=== PATIENT | male | born 1930 | race Caucasian/White ===

== ENCOUNTER 2019-10-06 16:42 | Observation (INO) | payer OTHER ==
--- OUTSIDE RECORDS SUMMARY | 2019-10-06 16:44 | XMS REPORT | Clinical Summary ---
:1930 Author Organization [facility] Address [address] [place] [address] Care Team Providers Name Role Phone MD Rickey Primary Care Provider Allergies No Known Allergies Medications Medication Sig Dispensed Refills Start Date End Date Status carvedilol (COREG) Take 6.25 mg 0 Active 6.25 MG tablet by mouth 2 (two) times a day with meals. allopurinol Take 100 mg 0 Active (ZYLOPRIM) 100 MG by mouth tablet daily. losartan (COZAAR) Take 100 mg 0 Active 100 MG tablet by mouth daily. pravastatin Take 40 mg 0 Active (PRAVACHOL) 40 MG by mouth tablet daily. mirabegron Take 50 mg 0 Active (MYRBETIQ) 50 mg by mouth tablet extended daily. release 24 hr therapeutic Take 1 0 Active multivitamin tablet by (THERAGRAN) tablet mouth daily. aspirin (ECOTRIN) Take 81 mg 0 A ctive 81 MG enteric by mouth coated tablet daily. memantine Take 10 mg 0 Active (NAMENDA) 10 MG by mouth 2 tablet (two) times a day. celecoxib TAKE ONE 30 capsule 0 03/02/2019 Active (CeleBREX) 200 MG CAPSULE BY capsuleIndications MOUTH DAILY : Acute pain of right shoulder, Traumatic incomplete tear of right rotator cuff, subsequent encounter celecoxib Take 1 30 capsule 0 02/03/2019 Disconti nued (CeleBREX) 200 MG capsule (200 9 (Reorder) capsuleIndications mg total) by : Acute pain of mouth daily right shoulder, for 30 days. Traumatic incomplete tear of right rotator cuff, subsequent encounter traMADol (ULTRAM) Acute Pain. 60 tablet 0 02/03/2019 10/31/201 50 mg One tablet 9 tabletIndications: by mouth acute pain every 6-8 hours prn pain HYDROcodone-acetam acute pain. 50 tablet 0 04/28/2019 05/07/19 2 inophen (NORCO) 1 tablets by 0 7.5-325 mg per mouth every tabletIndications: 6-8 hours as acute pain needed for pain Active Problems No known active problems Encounters Date Type Specialty Care Team Description 04/28/2019 Telephone Orthopedic Surgery Lavelle Braswell Acut e pain of right shoulder (Primary Dx); Traumatic incom plete tear of right rotator cuff, subsequent encounter 03/01/2019 Refill Orthopedic Surgery Lavelle Braswell Acut e pain of right shoulder; Traumatic incom plete tear of right rotator cuff, subsequent encounter 02/03/2019 Office Visit Orthopedic Surgery Lavelle Braswell Acut e pain of right shoulder (Primary Dx); Traumatic incom plete tear of right rotator cuff, subsequent encounter 10/29/2018 Office Visit Orthopedic Surgery Lavelle Braswell Acut e pain of right MD shoulder (Prima ry Dx) after 10/05/2018 Family History Medical History Relation Name Comments Cancer Father No Known Problems Mother Relation Name Status Comments Father Mother Social History Tobacco Use Types Packs/Day Years Used Date Never Smoker Smokeless Tobacco: Never Used Alcohol Use Drinks/Week oz/Week Comments No Alcohol Habits Answer Date Recorded How often do you have a drink containing alcohol? Never 06/08/2018 How many drinks containing alcohol do you have on a typical Not asked day when you are drinking? How often do you have six or more drinks on one occasion? No t asked Sex Assigned at Date Recorded Not on file Job Start Date Occupation Industry Not on file Not on file Not on file Travel History Travel Start Travel End No recent travel history available. Last Filed Vital Signs Vital Sign Reading Time Taken Comments Blood Pressure - - Pulse - - Temperature - - Respiratory Rate - - Oxygen Saturation - - Inhaled Oxygen Concentration - - Weight 82.6 kg (182 lb) 02/03/2019 9:59 AM CDT Height 177.8 cm (5' 10") 02/03/2019 9:59 AM CDT Body Mass Index 26.11 02/03/2019 9:59 AM CDT Plan of Treatment Health Maintenance Due Date Last Done Comments SHINGLES VACCINES (#1) 1980 65+ PNEUMOCOCCAL VACCINE (1 of 2 - PCV13) 08/04/1995 INFLUENZA VACCINE 11/19/2019 Procedures Procedure Name Priority Date/Time Associated Comments Diagnosis AR ARTHROCENTESIS Routine 02/03/2019 9:50 Acute pain of Resul ts for this ASPIR&/INJ MAJOR AM CDT right shoulder procedure are in JT/BURSA W/O US Traumatic the results incomplete tear of section. right rotator cuff, subsequent encounter XR SHOULDER 2+ VW RIGHT Routine 10/29/2018 10:19 Acute pain of Results for this AM CDT right shoulder procedure are in the results section. AR ARTHROCENTESIS Routine 10/29/2018 10:00 Acute pain of Resul ts for this ASPIR&/INJ MAJOR AM CDT right shoulder procedure are in JT/BURSA W/O US the results section. after 10/05/2018 Results Large Joint Arthrocentesis: shoulder, R subacromial bursa (02/03/2019 9:50 AM CDT) Narrative Performed At Michelle Negrete NP 2018 10:40 AM Large Joint Arthrocentesis: shoulder, R subacromial bursa Consent given by: patient Site marked: site marked Timeout: Immediately prior to procedure a time out was called to verify the correct patient, procedure, equipmen t, technical support technician and site/side marked as required Supporting Documentation Indications: pain Procedure Details Preparation: Patient was prepped and darren ped in the usual sterile fashion Ultrasound guided: no Location: shoulder - R subacromial bursa Right side: Needle size: 22 G Approach: posterior Right shoulder medications administered: 80 mg methylP REDNISolone acetate 40 mg/mL; 2 mL bupivacaine 0.5 % (5 mg/mL); 2 mL lidoc aditya 10 mg/mL (1 %) Patient tolerance: patient tolerated the procedure wel l with no immediate complications XR Shoulder 2+ Vw Right (10/29/2018 10:19 AM CDT) Specimen Narrative Performed At This result has an attachment that is no t available. 3 views of the right shoulder reveal no acute fracture or dislocation. A [facility] large subacromial spur is noted with associated narrow ing of the AC joint. Performing Organization Address City/State/Zipcode Phone Number [facility] [address] [place] [address] Large Joint Arthrocentesis: shoulder, R subacromial bursa (10/29/2018 10:00 AM CDT) Narrative Performed At Michelle Negrete, JENNIFER 019 10:53 AM Large Joint Arthrocentesis: shoulder, R subacromial bursa Consent given by: patient Site marked: site marked Timeout: Immediately prior to procedure a time out was called to verify the correct patient, procedure, equipmen t, technical support technician and site/side marked as required Supporting Documentation Indications: pain Procedure Details Preparation: Patient was prepped and darren ped in the usual sterile fashion Ultrasound guided: no Location: shoulder - R subacromial bursa Right side: Needle size: 22 G Approach: posterior Right shoulder medications administered: 80 mg methylP REDNISolone acetate 40 mg/mL; 2 mL bupivacaine 0.5 % (5 mg/mL); 2 mL lidoc aditya 10 mg/mL (1 %) Patient tolerance: patient tolerated the procedure wel l with no immediate complications after 10/05/2018 Insurance Payer Benefit Plan / Subscriber ID Effective Dates Phone Addre ss Type Group HUMANA MEDICARE HUMANA MEDICARE xxxxxxxxx 2018-Present PPO PPO/PFFS/ERS [facility] ([place]) [place] [address] Advance Directives For more information, please contact: [phone] Type Date Recorded 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
[2019-10-06 16:59] VITALS: BMI 25.9
[2019-10-06] MEDS ORDERED: HYDROMORPHONE HCL 1 MG/ML INJ IV PRN (17:11)
[2019-10-06] MEDS: ENOXAPARIN 40 MG/0.4 ML SQ SCH (17:43)
[2019-10-06] MEDS ORDERED: ONDANSETRON 4 MG/2 ML VIAL IV PRN (18:00)
[2019-10-06] MEDS ORDERED: LOPERAMIDE HCL 2 MG CAPSULE PO PRN (18:00)
[2019-10-06] MEDS ORDERED: DIPHENHYDRAMINE 25 MG TAB/CAP PO PRN (18:00)
[2019-10-06] MEDS ORDERED: ONDANSETRON 4 MG (ODT) TAB PO PRN (18:00)
[2019-10-06] MEDS ORDERED: NACHLORIDE 0.45% 1,000 ML IV SCH (18:00)
[2019-10-06] MEDS ORDERED: PNEUMOCOCCAL VACCINE 0.5 ML IMVAC ONE (18:00)
[2019-10-06] MEDS ORDERED: ACETAMINOPHEN 325 MG TABLET PO PRN (18:00)
[2019-10-06] MEDS ORDERED: POLYETHYL GLY 3350 17 GM/DOSE PO PRN (18:00)
[2019-10-06 18:55] LABS: Absolute Lymphocytes (CBC) 1.7 K/uL (0.7-4.9); Basophils % 0.6 % (0-1.3); Hematocrit 44.7 % (39.6-49.0); Lymphocytes % 21.2 % (15.3-44.8); MPV 11.1 fL (7.6-11.3); RBC Red Blood Cell Count 4.82 M/uL (4.33-5.43)
[2019-10-06 18:59] LABS: Protime INR 0.97
[2019-10-06 19:27] LABS: Albumin 3.6 g/dL (3.4-5.0); Bilirubin Direct 0.1 mg/dL (0-0.2); Bilirubin Total 0.6 mg/dL (0.2-1.0); Magnesium 2.1 mg/dL (1.8-2.4); Phosphorus 3.2 mg/dL (2.5-4.9); Potassium 3.9 mmol/L (3.5-5.1); Protein, Total 7.5 g/dL (6.4-8.2); Thyroid Stimulating Hormone 1.62 uIU/mL (0.360-3.740)
[2019-10-06] MEDS: NACHLORIDE 0.45% 1,000 ML IV SCH (21:06)
[2019-10-07 06:12] LABS: Absolute Lymphocytes (CBC) 1.6 K/uL (0.7-4.9); Basophils % 0.6 % (0-1.3); Hematocrit 44.4 % (39.6-49.0); Lymphocytes % 22.5 % (15.3-44.8); MPV 10.7 fL (7.6-11.3); RBC Red Blood Cell Count 4.86 M/uL (4.33-5.43)
--- NOTE | 2019-10-07 07:24 | RAD REPORT ---
EXAM DESCRIPTION: RAD - Chest Pa And Lat (2 Views) - 10/06/2019 9:35 pm CLINICAL HISTORY: abdominal pain COMPARISON: Portable August 2010 TECHNIQUE: Frontal and lateral views of the chest were obtained. FINDINGS: The lungs are normal volume. Diaphragm is flattened. No focal mass or consolidation. No fa ilure or volume overload. Granulomatous calcifications are present at the luis. Mild for age scarring changes are seen in the lung parenchyma. Heart size is normal and central vasculature is within no rmal limits. No pleural effusion or pneumothorax seen. No acute bony finding noted. No aortic abno rmality. No free air under the diaphragm. IMPRESSION: No acute cardiopulmonary finding seen. Patient may have minimal COPD.
--- NOTE | 2019-10-07 07:39 | RAD REPORT ---
EXAM DESCRIPTION: CT - Abdomen Pelvis W Contrast - 10/06/2019 9:15 pm CLINICAL HISTORY: abdominal pain, right side, prior prostatectomy COMPARISON: No comparisons TECHNIQUE: Biphasic, helical CT imaging of the abdomen and pelvis was performed following 100 ml non -ionic IV contrast. Oral contrast was given. All CT scans are performed using dose optimization technique as appropriate and may include automated exposure control or mA/KV adjustment according to patient size. FINDINGS: No suspicious findings in the lung bases. Liver is normal size. Attenuation is borderline to mildly fatty infiltrated. No focal liver lesions. No portal vein abnormality identified. No pancreatic abnormality seen. Granulomatous calcifications a re present in an otherwise normal spleen. Gallbladder and biliary tree are also without suspicious fi nding. Renal function is symmetric. No solid mass of either kidney identifiable. No pyelonephritis or acute renal parenchymal process seen. The patient has numerous bilateral renal cysts measuring from a few m m to 7.4 cm. There is calcification along the medial rim of 1 of the upper pole left renal cysts. Non e of the cysts have a solid mass component or thickened septation. Patient has a 7 millimeter nonobst ructing calyx calcification on the left. Bladder is contracted limiting assessment. Bladder diverticu lum is seen. No bladder calculus. Prostatectomy surgical changes are noted. No adrenal abnormalities. No dilated bowel loops or bowel wall thickening. Moderate stool volume fills the colon. Patient has m inimal diverticulosis without diverticulitis. The appendix is normal. No active colon or GI process s een. No intraperitoneal free air, free fluid or pneumatosis. No inflammatory stranding. Patient has a small focus of air in the subcutaneous fatty tissues right lower quadrant presumably from a medicati on injection. No mass or bulky lymphadenopathy. Patient has a small fat only left inguinal hernia. N o abdominal wall hematoma or mass. Patient has postsurgical changes L4-S1. There is prominent degenerative change throughout the mid and lower lumbar spine. An acute or destructive bone process is not identifiable. Prominent SI joint deg enerative changes are present. Central canal detail is inherently limited in further obscured by lowe r lumbar metal hardware. No acute vascular finding. Mild for age atherosclerotic calcifications are present. IMPRESSION: No acute or significant findings seen to explain the patient's right-sided abdominal yue n pattern. No acute findings are seen. Patient has a borderline to mild fatty infiltration. Multiple renal cysts are present with 1 left renal cyst showing partial rim calcification. No solid m ass component. This can be monitored with follow-up in 6-12 months.
[2019-10-07 07:57] LABS: Urine Appearance CLEAR; Urine Bilirubin NEGATIVE (NEG); Urine Blood NEGATIVE (NEG); Urine Color YELLOW; Urine Glucose NEGATIVE (NEG); Urine Protein TRACE (NEG); Urine Specific Gravity 1.025 (1.005-1.030)
[2019-10-07 08:14] LABS: Urine Microscopic Reflex ORDER UMIC
[2019-10-07 08:34] LABS: Urine Bacteria NONE SEEN /HPF (NONE SEEN); Urine Culture Reflex Order NOT NEEDED; Urine RBC <5 /HPF (NONE SEEN)
[2019-10-07] MEDS ORDERED: LOSARTAN/HCTZ 50-12.5 PO SCH (09:00)
[2019-10-07] MEDS ORDERED: carvediloL 6.25 MG TAB PO SCH (09:00)
[2019-10-07] MEDS ORDERED: allopurinoL 100 MG TAB PO SCH (09:00)
[2019-10-07] MEDS: ENOXAPARIN 40 MG/0.4 ML SQ SCH (09:23)
[2019-10-07 10:47] VITALS: O2SAT 96
--- NOTE | 2019-10-07 11:13 | EKG ---
Test Date: 2019-10-06 Test Time: 22:08:36 Database Analyst: CATRACHO MEASUREMENT RESULTS: Intervals: Rate: 56 OH: 186 QRSD: 104 QT: 432 QTc: 416 [place]: P: 47 OH: 186 QRS: 48 T: 41 INTERPRETIVE STATEMENTS: Sinus bradycardia Otherwise normal ECG Compared to ECG 09/12/2010 04:36:46 No significant changes Electronically Signed On 10-07-19 11:12:57 CDT by Dante Epperson
[2019-10-07] MEDS: NACHLORIDE 0.45% 1,000 ML IV SCH (12:23)
[2019-10-07] MEDS ORDERED: dexAMETHasone 4 MG/ML VIAL IV ONE (13:02)
[2019-10-07 17:57] VITALS: BP 165/76; TEMP 97.6
--- NOTE | 2019-10-07 17:59 | P.DS ---
Admission Date: 10/06/19 Discharge Date: 10/07/19 Disposition: ROUTINE DISCHARGE Discharge Condition: FAIR Hospital Course: MR. TORRES HAD SEVERE PAIN R MID ABDOMEN. NOTHING IS FOUND ON CT SCAN. HE WILL SEE GI DOCTOR ON OUTPATIENT BASIS. HE WILL GET MRI DONE FIRST. HE MAY HAVE RADICULAR PAIN FROM [facility]. HE IS STABLE FOR DISCHARGE. WE ARE WAITING ALL DAY FOR MRI HOSPITAL DID NOT DO ON TIME. AT LAST I CHANGED MRI TO STAT SO I CAN SEND HIM HOME. Vital Signs/Physical Exam: Temp Pulse Resp BP Pulse Ox 97.6 F 60 16 165/76 H 97 10/07/19 16:00 10/07/19 16:00 10/07/19 16:00 10/07/19 16:00 10/07/19 16:00 Laboratory Data at Discharge: WBC 6.9 K/uL (4.3-10.9) 10/07/19 05:05 Hgb 14.8 g/dL (13.6-17.9) 10/07/19 05:05 Hct 44.4 % (39.6-49.0) 10/07/19 05:05 Plt Count 162 K/uL (152-406) 10/07/19 05:05 PT 11.4 SECONDS (9.5-12.5) 10/06/19 18:24 INR 0.97 10/06/19 18:24 APTT 30.7 SECONDS (24.3-36.9) 10/06/19 18:24 Sodium 143 mmol/L (136-145) 10/07/19 05:05 Potassium 4.0 mmol/L (3.5-5.1) 10/07/19 05:05 BUN 20 mg/dL (7-18) H 10/07/19 05:05 Creatinine 1.22 mg/dL (0.55-1.3) 10/07/19 05:05 Glucose 88 mg/dL (74-106) 10/07/19 05:05 Phosphorus 3.2 mg/dL (2.5-4.9) 10/06/19 18:24 Magnesium 2.1 mg/dL (1.8-2.4) 10/06/19 18:24 Total Bilirubin 0.6 mg/dL (0.2-1.0) 10/06/19 18:24 AST 21 U/L (15-37) 10/06/19 18:24 ALT 22 U/L (12-78) 10/06/19 18:24 Alkaline Phosphatase 85 U/L (45-117) 10/06/19 18:24 Home Medications: Allopurinol 1 tab PO DAILY 10/06/19 Colchicine 1 tab PO BID 10/06/19 Losartan/Hydrochlorothiazide [Losartan-Hctz 50-12.5 mg Tab] 1 tab PO DAILY 10/06/19 carvediloL [Carvedilol] 1 tab PO DAILY 10/06/19 Gabapentin [Neurontin*] 100 mg PO TID #90 cap 10/07/19 New Medications: Gabapentin [Neurontin*] 100 mg PO TID #90 cap
--- NOTE | 2019-10-07 19:10 | RAD REPORT ---
EXAM DESCRIPTION: MRI - Lumbar Spine Wo Con- 10/07/2019 6:11 pm CLINICAL HISTORY: back pain Back pain, radiculopathy COMPARISON: None FINDINGS: MRI lumbar spine and MRI sacrum/coccyx was performed Postsurgical hardware is in place lower lumbar spine spanning L4-S1. 8 mm degenerative anterolisthesi s is present of L4 on 5. Mild posterior disc bulges are present throughout the lumbar levels with sma ll endplate osteophytes, most significant at L3-4 where mild central canal narrowing is present. Mild edema is present along the inferior endplate of L2 with a slight central compression deformity evide nt. MRI sacral/coccygeal demonstrates diminished T1 signal and elevated T2 signal in the right inferior s acrum suspicious for insufficiency fracture. Symmetric sacroiliac joints noted. IMPRESSION: Insufficiency fracture is suspected involving the inferior right sacrum. Mild acute or subacute central osteoporotic compression fracture involving inferior L2 suspected. Lower lumbar degenerative changes are present with 8 mm anterolisthesis of L4 on 5 with hardware in p lace.
--- NOTE | 2019-10-10 09:10 | RAD REPORT ---
EXAM DESCRIPTION: MRI - Sacrum/Coccyx Wo Cont - 10/07/2019 6:15 pm CLINICAL HISTORY: Back pain Back pain, radiculopathy COMPARISON: None FINDINGS: MRI lumbar spine and MRI sacrum/coccyx was performed Postsurgical hardware is in place lower lumbar spine spanning L4-S1. 8 mm degenerative anterolisthesi s is present of L4 on 5. Mild posterior disc bulges are present throughout the lumbar levels with sma ll endplate osteophytes, most significant at L3-4 where mild central canal narrowing is present. Mild edema is present along the inferior endplate of L2 with a slight central compression deformity evide nt. MRI sacral/coccygeal demonstrates diminished T1 signal and elevated T2 signal in the right inferior s acrum suspicious for insufficiency fracture. Symmetric sacroiliac joints noted. IMPRESSION: Insufficiency fracture is suspected involving the inferior right sacrum. Mild acute or subacute central osteoporotic compression fracture involving inferior L2 suspected. Lower lumbar degenerative changes are present with 8 mm anterolisthesis of L4 on 5 with hardware in p lace.
[2019-10-12 13:58] LABS: Vitamin D 1,25-Dihydroxy Total 38 pg/mL (18-72); Vitamin D,1,25-OH2, D2 <8 pg/mL
== END 2019-10-07 20:28 | disposition home or self-care (01) ==
LOC: 2ND 16:42
PROVIDERS: ADMIT Internal Medicine; ATTEND Internal Medicine
DX: R10.9 Unspecified abdominal pain (principal); M19.90 Unspecified osteoarthritis, unspecified site; N28.1 Cyst of kidney, acquired; M43.16 Spondylolisthesis, lumbar region; Z11.59 Encounter for screening for other viral diseases; R00.1 Bradycardia, unspecified; M10.9 Gout, unspecified; G47.33 Obstructive sleep apnea (adult) (pediatric); I10 Essential (primary) hypertension; M54.17 Radiculopathy, lumbosacral region; Z79.899 Other long term (current) drug therapy; Z85.46 Personal history of malignant neoplasm of prostate
CPT/HCPCS: 93005; 87040 ×2; 85025 ×2; 80048 ×2; 36415 ×2; 83735; 84100; 85610; 80076; 85730; 82652; 84443; 82607; 74177; 71046; 72148; 72195; U0002; Q9967; J1650 ×2; G0379; G0378 ×3; 81003; 81015

== ENCOUNTER 2019-11-09 07:46 | Emergency (ER) | payer OTHER ==
--- OUTSIDE RECORDS SUMMARY | 2019-11-09 07:48 | XMS REPORT | Clinical Summary ---
:1930 Author Organization [facility] Address [address] [place] [address] Care Team Providers Name Role Phone MD [...] (ULTRAM) Acute Pain. 60 tablet 0 02/03/2019 50 mg One tablet 9 tabletIndications: by [...] tear of right rotator cuff, subsequent encounter after 11/08/2018 Family History Medical History Relation Name Comments [...] Procedure Name Priority Date/Time Associated Comments Diagnosis [place] ARTHROCENTESIS Routine 02/03/2019 9:50 Acute pain of Resul ts for this ASPIR&/INJ MAJOR AM CDT right shoulder procedure are in JT/BURSA W/O US Traumatic the results incomplete tear of section. right rotator cuff, subsequent encounter after 11/08/2018 Results Large Joint Arthrocentesis: shoulder, R subacromial bursa (02/03/2019 9:50 AM CDT) Narrative Performed At Michelle Negrete NP 2018 10:40 AM Large Joint Arthrocentesis: shoulder, R subacromial bursa Consent given by: patient Site marked: site marked Timeout: Immediately prior to procedure a time out was called to verify the correct patient, procedure, equipmen t, network support technician and site/side marked as required [...] wel l with no immediate complications after 11/08/2018 Insurance Payer Benefit Plan / Subscriber ID Effective Dates Phone Addre ss Type Group HUMANA MEDICARE HUMANA MEDICARE xxxxxxxxx 2018-Present PPO PPO/PFFS/ERS [facility] ([place]) [place] [address] Advance Directives For more information, please contact: [phone] Type Date Recorded Patient Choir Director Explanati on Advance Directives, Living Will and Medical Power of Jump Roll Operator
[2019-11-09 08:16] LABS: Absolute Lymphocytes (CBC) 1.6 K/uL (0.7-4.9); Basophils % 0.7 % (0-1.3); Hematocrit 43.5 % (39.6-49.0); Lymphocytes % 17.8 % (15.3-44.8); MPV 10.1 fL (7.6-11.3); RBC Red Blood Cell Count 4.75 M/uL (4.33-5.43)
[2019-11-09] MEDS ORDERED: MEPERIDINE HCL 50 MG/ML ONE (08:24)
--- NOTE | 2019-11-09 08:28 | RAD REPORT ---
EXAM DESCRIPTION: RAD - Chest Single View - 11/09/2019 8:20 am CLINICAL HISTORY: CHEST PAIN Chest pain. COMPARISON: Chest Pa And Lat (2 Views) dated 10/06/2019; CHEST SINGLE VIEW dated 09/12/2010 FINDINGS: Portable technique limits examination quality. The lungs are underinflated but grossly clear. The heart is normal in size. No displaced fractures.To rtuous thoracic aorta. IMPRESSION: No acute intrathoracic process suspected.
[2019-11-09 08:32] LABS: ALT/SGPT 24 U/L (12-78); AST/SGOT 21 U/L (15-37); Albumin 3.5 g/dL (3.4-5.0); Alkaline Phosphatase 105 U/L (45-117); BUN Blood Urea Nitrogen 29 mg/dL (7-18); Bicarbonate 26 mmol/L (21-32); Bilirubin Direct 0.2 mg/dL (0-0.2); Bilirubin Total 0.9 mg/dL (0.2-1.0); Glucose Level 98 mg/dL (74-106); Magnesium 2.5 mg/dL (1.8-2.4); NT PRO-BNP 195 pg/mL (<450); Potassium 4.3 mmol/L (3.5-5.1); Protein, Total 7.7 g/dL (6.4-8.2); Sodium Level 139 mmol/L (136-145); Troponin (Emerg Dept Use Only) < 0.02 ng/mL (0.0-0.045)
--- NOTE | 2019-11-09 12:31 | ER ---
Nurse's Notes [facility] Name: Ashok Barr Age: 89 yrs Sex: Male : 1930 Arrival Date: 11/09/2019 Time: 07:47 Bed 14 Private MD: Jeffrey Lang V Diagnosis: Chest pain, unspecified Presentation: 11/08 07:47 Chief complaint: Patient states: "I have some chest spasms that started about 20 aa5 minutes ago". Pt c/o pain to left side of chest, denies cough, denies fever, denies SOB. 07:47 Coronavirus screen: Patient denies a cough. Patient denies shortness of breath or aa5 difficulty breathing. Patient denies measured and/or subjective temperature greater than 100.4F prior to today's visit. Patient denies travel on a cruise ship or to a country the [facility] currently lists as an affected area. Patient denies contact with known and/or suspected case of COVID-19. Proceed with normal triage. Ebola Screen: Patient negative for fever greater than or equal to 101.5 degrees Fahrenheit, and additional compatible Ebola Virus Disease symptoms. Initial Sepsis Screen: Does the patient meet any 2 criteria? No. Patient's initial sepsis screen is negative. Does the patient have a suspected source of infection? No. Patient's initial sepsis screen is negative. Risk Assessment: Do you want to hurt yourself or someone else? Patient reports no desire to harm self or others. Onset of symptoms was November 09, 2019. 07:47 Method Of Arrival: Wheelchair aa5 07:47 Acuity: SATISH 3 aa5 Historical: - Allergies: 07:47 No Known Allergies; aa5 - PMHx: 07:47 Hypertension; aa5 - Immunization history:: Adult Immunizations up to date. - Family history:: not pertinent. - Social history:: Smoking status: unknown. - Hospitalizations: : No recent hospitalization is reported. Screenin:10 Abuse screen: Denies threats or abuse. Denies injuries from another. Nutritional jr10 screening: No deficits noted. Tuberculosis screening: No symptoms or risk factors identified. Fall Risk Fall in past 12 months (25 points). IV access (20 points). Ambulatory Aid- Crutches/Cane/Walker (15 pts). Gait- Normal/Bed Rest/Wheelchair (0 pts) Mental Status- Oriented to own ability (0 pts). Assessment: 08:07 General: Appears distressed, uncomfortable, Behavior is restless. Pain: Complains of jr10 pain in anterior aspect of left upper chest and left breast. Pain: Pain does not radiate. Pain currently is 8 out of 10 on a pain scale. Quality of pain is described as sharp, Pain began 30 min ago. Is intermittent, episodic, lasting a few seconds. Alleviated by nothing. Noted to be grimacing, moaning, Also complains of no other associated symptoms. 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 Neuro: No deficits noted. Cardiovascular: Reports chest pain, Denies lightheadedness, nausea, palpitations, shortness of breath, vomiting, Edema is absent. Rhythm is regular. Respiratory: No deficits noted. Breath sounds are clear bilaterally. GI: No deficits noted. : No deficits noted. Derm: No deficits noted. Musculoskeletal: No deficits noted. 08:12 Reassessment: xray at bedside. jr10 08:26 Reassessment: Pt family contact information Deloris (): [phone]. jr10 09:39 Reassessment: Patient appears in no apparent distress at this time. Patient states jr10 feeling better. Patient states symptoms have improved. Vital Signs: 07:47 BP 152 / 72; Pulse 62; Resp 18 S; Temp 97.8(O); Pulse Ox 98% on R/A; Weight 81.65 kg aa5 (R); Height 5 ft. 10 in. (177.80 cm) (R); Pain 10/10; 08:10 BP 143 / 69; Pulse 58; Resp 20; Pulse Ox 96% ; Pain 8/10; jr10 09:00 BP 96 / 61; Pulse 56; Resp 17; Pulse Ox 99% on 2 lpm NC; jr10 09:38 Pain 0/10; jr10 10:03 BP 106 / 60; Pulse 58; Resp 18; Pulse Ox 96% on R/A; Pain 0/10; jr10 12:19 BP 121 / 72; Pulse 56; Resp 20; Pulse Ox 100% on R/A; jr10 12:30 BP 121 / 63; Pulse 61; Resp 20; Temp 98.7; Pulse Ox 100% on R/A; jr10 07:47 Body Mass Index 25.83 (81.65 kg, 177.80 cm) aa5 ED Course: 07:47 Patient arrived in ED. mr 07:47 Jeffrey Lang MD is Private Physician. mr 07:47 Arm band placed on. aa5 07:50 Romeo Pettit MD is Attending Physician. rn 07:51 EKG done, by ED staff, reviewed by Romeo Pettit MD. [facility] 07:52 Samara Mcclain, SANDER is Primary Nurse. jr10 08:01 Triage completed. aa5 08:10 Patient has correct armband on for positive identification. Placed in gown. Bed in low jr10 position. Call light in reach. Side rails up X2. environmental monitoring technician on. Pulse ox on. NIBP on. 08:11 No provider procedures requiring assistance completed. Inserted saline lock: 20 gauge jr10 in right forearm, using aseptic technique. IV is patent, is intact, Flushed. Oxygen administration via nasal cannula \\T\\ 2L/min. 08:20 XRAY Chest (1 view) In Process Unspecified. EDMS 10:04 No apparent distress. Resting quietly. jr10 12:30 Jeffrey Lang MD is Referral Physician. rn 12:56 IV discontinued, No redness/swelling at site. Pressure dressing applied. jr10 Administered Medications: 08:21 Drug: Demerol - Meperidine 12.5 mg Route: IVP; Site: right forearm; jr10 09:38 Follow up: Response: No adverse reaction; Pain is decreased jr10 Outcome: 12:30 Discharge ordered by . rn 12:56 Discharged to home ambulatory, with significant other. jr10 12:56 Condition: good 12:56 Discharge instructions given to patient, Instructed on discharge instructions, follow up and referral plans. Demonstrated understanding of instructions, follow-up care. 12:57 Patient left the ED. jr10 Signatures: Dispatcher [employer] EDWA Katherine Mcclain mr Romeo Pettit MD MD rn Calderon, Audri, RN RN 5 Kary Mejia [facility] Samara Mcclain RN RN [facility]
--- NOTE | 2019-11-09 12:31 | EDPHYS ---
Physician Documentation [facility] Name: Ashok Barr Age: 89 yrs Sex: Male : 1930 Arrival Date: 11/09/2019 Time: 07:47 Bed 14 Private MD: Jeffrey Lang V ED Physician Romeo Pettit HPI: 11/08 08:04 This 89 yrs old Male presents to ER via Wheelchair with complaints of Chest rn Pain. 08:04 The patient or guardian reports chest pain that is located primarily in the left rn lateral anterior chest. Onset: 20 minute(s) ago. The pain does not radiate. Associated signs and symptoms: The patient has no apparent associated signs or symptoms, Pertinent negatives: diaphoresis, headache, lower extremity swelling, shortness of breath, syncope, vomiting. The chest pain is described as cramping. Duration: The patient or guardian reports multiple episodes, that are intermittent. Modifying factors: The symptoms are alleviated by nothing. the symptoms are aggravated by nothing. Severity of pain: At its worst the pain was mild in the emergency department the pain is unchanged. The patient has not experienced similar symptoms in the past. Reports sudden onset of chest pain while about to drink coffee, feels like muscle cramps of chest, feels deep, not worse or better with anything, is episodic, lasts for seconds, but happening frequently, no syncope/sob/cough/fever/vomiting/diarrhea. Never had pain like this before, denies recent fall or trauma. . Historical: - Allergies: 07:47 No Known Allergies; aa5 - PMHx: 07:47 Hypertension; aa5 - Immunization history:: Adult Immunizations up to date. - Family history:: not pertinent. - Social history:: Smoking status: unknown. - Hospitalizations: : No recent hospitalization is reported. ROS: 08:04 Constitutional: Negative for fever, chills, and weight loss, Eyes: Negative for injury, rn pain, redness, and discharge, Neck: Negative for injury, pain, and swelling, Cardiovascular: Negative for palpitations, and edema, Respiratory: Negative for shortness of breath, cough, wheezing, and pleuritic chest pain, Abdomen/GI: Negative for abdominal pain, nausea, vomiting, diarrhea, and constipation, Back: Negative for injury and pain, MS/Extremity: Negative for injury and deformity, Skin: Negative for injury, rash, and discoloration, Neuro: Negative for headache, weakness, numbness, tingling, and seizure. Exam: 08:04 Constitutional: This is a well developed, well nourished patient who is awake, alert, rn episodic grimaces with pain Head/Face: Normocephalic, atraumatic. Cardiovascular: Regular rate and rhythm. No pulse deficits. Respiratory: Equal breath sounds bilaterally. No increased work of breathing, no retractions or nasal flaring. Abdomen/GI: soft, non-tender Skin: Warm, dry MS/ Extremity: Pulses equal, no cyanosis. Neurovascular intact. Full, normal range of motion. Equal circumference. Neuro: Awake and alert, GCS 15, oriented to person, place, time, and situation. Cranial nerves II-XII grossly intact. Motor strength 5/5 in all extremities. Sensory grossly intact. 08:10 ECG was reviewed by the Attending Physician. rn Vital Signs: 07:47 BP 152 / 72; Pulse 62; Resp 18 S; Temp 97.8(O); Pulse Ox 98% on R/A; Weight 81.65 kg aa5 (R); Height 5 ft. 10 in. (177.80 cm) (R); Pain 10/10; 08:10 BP 143 / 69; Pulse 58; Resp 20; Pulse Ox 96% ; Pain 8/10; jr10 09:00 BP 96 / 61; Pulse 56; Resp 17; Pulse Ox 99% on 2 lpm NC; jr10 09:38 Pain 0/10; jr10 10:03 BP 106 / 60; Pulse 58; Resp 18; Pulse Ox 96% on R/A; Pain 0/10; jr10 12:19 BP 121 / 72; Pulse 56; Resp 20; Pulse Ox 100% on R/A; jr10 12:30 BP 121 / 63; Pulse 61; Resp 20; Temp 98.7; Pulse Ox 100% on R/A; jr10 07:47 Body Mass Index 25.83 (81.65 kg, 177.80 cm) aa5 MDM: 07:50 Patient medically screened. rn 08:54 ED course: Cramping and pain resolved with 12.5 mg demerol. Feels fine. Initial labs rn and cxr/ecg unremarkable, will repeat troponin and ecg and if no change, dc home. . 12:29 Differential diagnosis: acute myocardial infarction, acute pericarditis, anxiety, chest rn wall pain, costochondritis, gastritis, gastroesophageal reflux disease (GERD), pleurisy, pneumothorax. Data reviewed: vital signs, nurses notes, lab test result(s), EKG, radiologic studies, plain films, and as a result, I will discharge patient. Counseling: I had a detailed discussion with the patient and/or guardian regarding: the historical points, exam findings, and any diagnostic results supporting the discharge/admit diagnosis, lab results, radiology results, the need for outpatient follow up, to return to the emergency department if symptoms worsen or persist or if there are any questions or concerns that arise at home. Response to treatment: the patient's symptoms have resolved after treatment, the patient's condition has returned to base line, the patient is now symptom free, and as a result, I will discharge patient. ED course: Symptom free for hours, repeat trop and ecg no change, no ischemia, will dc home. . 11/08 07:59 Order name: Basic Metabolic Panel; Complete Time: 08:35 11/08 07:59 Order name: CBC with Diff; Complete Time: 08:30 11/08 07:59 Order name: LFT's; Complete Time: 08:35 11/08 07:59 Order name: Magnesium; Complete Time: 08:35 11/08 07:59 Order name: NT PRO-BNP; Complete Time: 08:35 11/08 07:59 Order name: Troponin (emerg Dept Use Only); Complete Time: 08:35 11/08 07:59 Order name: XRAY Chest (1 view); Complete Time: 08:30 11/08 07:59 Order name: EKG; Complete Time: 08:00 11/08 07:59 Order name: Cardiac monitoring; Complete Time: 08:03 11/08 07:59 Order name: EKG - Nurse/Tech; Complete Time: 08:03 11/08 07:59 Order name: IV Saline Lock; Complete Time: 08:11/08 11:09 Order name: Troponin (emerg Dept Use Only); Complete Time: 12:29 11/08 11:09 Order name: EKG; Complete Time: 11:11/08 07:59 Order name: Labs collected and sent; Complete Time: 08:03 rn 11/08 07:59 Order name: O2 Per Protocol; Complete Time: 08:03 rn 11/08 07:59 Order name: O2 Sat Monitoring; Complete Time: 08:03 rn 11/08 11:09 Order name: EKG - Nurse/Tech; Complete Time: 12:19 rn EC:10 Rate is 62 beats/min. Rhythm is regular. QRS [place] is Normal. IN interval is normal. QRS rn interval is normal. QT interval is normal. No Q waves. T waves are Normal. No ST changes noted. Clinical impression: NSR w/ Non-specific ST/T Changes. Interpreted by me. Reviewed by me. Administered Medications: 08:21 Drug: Demerol - Meperidine 12.5 mg Route: IVP; Site: right forearm; jr10 09:38 Follow up: Response: No adverse reaction; Pain is decreased jr10 Disposition: 11/09/19 12:30 Discharged to Home. Impression: Chest pain, unspecified. - Condition is Stable. - Discharge Instructions: Nonspecific Chest Pain, Pain Without a Known Cause. - Medication Reconciliation Form, Thank You Letter, Antibiotic Education, Prescription Opioid Use form. - Follow up: Jeffrey Lang MD; When: 1 - 2 days; Reason: Recheck today's complaints, Re-evaluation by your physician. - Problem is new. - Symptoms are resolved. Signatures: Dispatcher [employer] EDMS Romeo Pettit MD MD rn Calderon, Audri, RN RN aa5 Samara Mcclain RN RN jr10 Corrections: (The following items were deleted from the chart) 12:57 12:30 11/09/2019 12:30 Discharged to Home. Impression: Chest pain, unspecified. jr10 Condition is Stable. Forms are Medication Reconciliation Form, Thank You Letter, Antibiotic Education, Prescription Opioid Use. Follow up: Jeffrey Lang; When: 1 - 2 days; Reason: Recheck today's complaints, Re-evaluation by your physician. Problem is new. Symptoms are resolved. rn
[2019-11-09 20:58] VITALS: O2SAT 100
[2019-11-09 20:59] VITALS: BP 121/63; TEMP 98.7
--- NOTE | 2019-11-11 15:29 | EKG ---
Test Date: 2019-11-09 Test Time: 12:15:56 Scientific Helper: ESPINOZA MEASUREMENT RESULTS: Intervals: Rate: 55 KS: 188 QRSD: 106 QT: 442 QTc: 422 [place]: P: -29 KS: 188 QRS: 56 T: 10 INTERPRETIVE STATEMENTS: Undetermined rhythm Otherwise normal ECG Compared to ECG 11/09/2019 07:51:21 Junctional rhythm no longer present ST (T wave) deviation no longer present Electronically Signed On 11-11-19 15:24:42 CDT by Dante Epperson
--- NOTE | 2019-11-11 15:29 | EKG ---
Test Date: 2019-11-09 Test Time: 07:51:21 Restaurant Shift Leader: EUGENIA MEASUREMENT RESULTS: Intervals: Rate: 62 PA: QRSD: 92 QT: 408 QTc: 414 [place]: P: PA: QRS: 64 T: 61 INTERPRETIVE STATEMENTS: Junctional rhythm Nonspecific ST abnormality Abnormal ECG Compared to ECG 10/06/2019 22:08:36 Junctional rhythm now present ST (T wave) deviation now present Sinus bradycardia no longer present Electronically Signed On 11-11-19 15:24:45 CDT by Dnate Epperson
== END 2019-11-09 12:57 | disposition home or self-care (01) ==
LOC: ER 07:46
DX: R07.9 Chest pain, unspecified (principal)
CPT/HCPCS: 93005 ×2; 85025; 80048; 36415; 83735; 80076; 84484 ×2; 83880; 71045; 96374; 99285; J2175

== ENCOUNTER 2020-06-16 19:19 | Inpatient (IN) | payer OTHER ==
[2020-06-16] MEDS ORDERED: MORPHINE 2 MG/ML SYR ONE ×2 (19:55→20:47)
[2020-06-16] MEDS ORDERED: MORPHINE 4 MG/ML SYR ONE (21:06)
--- NOTE | 2020-06-16 21:23 | RAD REPORT ---
EXAM DESCRIPTION: RAD - Pelvis - 06/16/2020 9:15 pm CLINICAL HISTORY: fall Trauma, fall COMPARISON: No comparisons FINDINGS: Intratrochanteric fracture of the proximal left femur is noted with mild displacement. No dislocation.
--- NOTE | 2020-06-16 21:24 | RAD REPORT ---
EXAM DESCRIPTION: RAD - Femur Left - 06/16/2020 9:16 pm CLINICAL HISTORY: fall;Pain COMPARISON: No comparisons FINDINGS: Intratrochanteric fracture is seen of the proximal left femur with mild displacement of th e fracture fragments. No dislocation evident.
--- NOTE | 2020-06-16 21:30 | EDPHYS ---
Physician Documentation [facility] Name: Ashok Barr Age: 89 yrs Sex: Male : 1930 Arrival Date: 06/16/2020 Time: 19:20 Bed X-Ray Private MD: ED Physician Nazario Arriola HPI: 06/16 19:40 This 89 yrs old Male presents to ER via EMS with complaints of Hip Pain. cp 19:40 The patient or guardian reports an injury, pain. that occurred at home, sustained from cp a fall, from a standing position, The patient is not able to ambulate. Patient is not able to bear weight. The complaints affect the left hip. Onset: The symptoms/episode began/occurred just prior to arrival. Associated signs and symptoms: Loss of consciousness: the patient experienced no loss of consciousness, Pertinent negatives: abdominal pain, chest pain, dizziness, fever, headache, shortness of breath, weakness. Severity of symptoms: in the emergency department the symptoms are unchanged, despite EMS interventions. Historical: - Allergies: 19:35 No Known Allergies; wh - PMHx: 19:35 Hypertension; wh - Immunization history:: Adult Immunizations up to date. - Social history:: Smoking status: Patient/guardian denies using. - Immunization history: Last tetanus immunization: unknown. ROS: 19:45 Constitutional: Negative for body aches, chills, fever, poor PO intake. cp 19:45 Eyes: Negative for injury, pain, redness, and discharge. cp 19:45 ENT: Negative for ear pain, sore throat, difficulty swallowing, difficulty handling secretions. 19:45 Neck: Negative for pain with movement, pain at rest, stiffness. 19:45 Cardiovascular: Negative for chest pain, edema, palpitations. 19:45 Respiratory: Negative for cough, shortness of breath, wheezing. 19:45 Abdomen/GI: Negative for abdominal pain, nausea, vomiting, and diarrhea, black/tarry stool, rectal bleeding. 19:45 Back: Negative for pain at rest, pain with movement. 19:45 MS/extremity: Positive for decreased range of motion, pain, tenderness, of the left hip, Negative for deformity, paresthesias. 19:45 Neuro: Negative for altered mental status, dizziness, headache, loss of consciousness, syncope, weakness. 19:45 All other systems are negative. Exam: 19:50 Constitutional: The patient appears in no acute distress, alert, awake, cp non-diaphoretic, non-toxic, well developed, well nourished, uncomfortable. 19:50 Head/Face: Normocephalic, atraumatic. cp 19:50 Eyes: Periorbital structures: appear normal, Conjunctiva: normal, no exudate, no injection, Lids and lashes: appear normal, bilaterally. 19:50 ENT: External ear(s): are unremarkable, Nose: is normal, Mouth: Lips: moist, Oral mucosa: moist, Posterior pharynx: Airway: no evidence of obstruction, patent. 19:50 Neck: C-spine: vertebral tenderness, is not appreciated, crepitus, is not appreciated, ROM/movement: is normal, is supple, without pain, no range of motions limitations, no nuchal rigidity. 19:50 Chest/axilla: Inspection: normal, Palpation: is normal, no crepitus, no tenderness. 19:50 Cardiovascular: Rate: normal, Rhythm: regular, Edema: is not appreciated, JVD: is not appreciated. 19:50 Respiratory: the patient does not display signs of respiratory distress, Respirations: normal, no use of accessory muscles, no retractions, labored breathing, is not present, Breath sounds: are clear throughout, no decreased breath sounds, no stridor, no wheezing. 19:50 Abdomen/GI: Inspection: abdomen appears normal, Palpation: abdomen is soft and non-tender, in all quadrants. 19:50 Back: pain, is absent, ROM is normal. 19:50 Musculoskeletal/extremity: Extremities: grossly normal except: noted in the left hip: decreased ROM, pain, tenderness, ROM: limited passive range of motion due to pain, in the left hip, Pulses: noted to be 2+ in the left dorsalis pedis artery, the left hip Severe pain noted. 19:50 Neuro: Orientation: to person, place \T\ time. Mentation: is normal, Motor: moves all fours, strength is normal. 21:40 ECG was reviewed by the Attending Physician. cp Vital Signs: 19:37 BP 146 / 75; Pulse 67; Resp 18; Temp 97; Pulse Ox 99% ; Weight 83.91 kg; Height 5 ft. wh 10 in. (177.80 cm); Pain 9/10; 20:54 BP 153 / 80; Pulse 72; Resp 18; Pulse Ox 99% on R/A; wh 22:31 BP 139 / 91; Pulse 85; Resp 18; Pulse Ox 99% on R/A; wh 23:22 BP 122 / 65; Pulse 86; Resp 18; Pulse Ox 98% on R/A; wh 19:37 Body Mass Index 26.54 (83.91 kg, 177.80 cm) [place] Coma Score: 19:39 Eye Response: spontaneous(4). Verbal Response: oriented(5). Motor Response: obeys wh commands(6). Total: 15. Trauma Score (Adult): 19:39 Eye Response: spontaneous(1); Verbal Response: oriented(1); Motor Response: obeys wh commands(2); Systolic BP: > 89 mm Hg(4); Respiratory Rate: 10 to 29 per min(4); [place] Score: 15; Trauma Score: 12 19:39 Eye Response: spontaneous(1); Verbal Response: oriented(1); Motor Response: obeys wh commands(2); Systolic BP: > 89 mm Hg(4); Respiratory Rate: 10 to 29 per min(4); [place] Score: 15; Trauma Score: 12 MDM: 19:33 Patient medically screened. cp 21:30 Data reviewed: vital signs, nurses notes, radiologic studies, plain films, and as a cp result, I will admit patient. 21:30 Test interpretation: by ED physician or midlevel provider: plain radiologic studies, cp xrays of left hip show intertrochanteric fracture. Physician consultation: Jeffrey Lang MD was called at 21:25, was contacted at 21:25, regarding admission, to the telemetry unit. patient's condition. 06/16 21:22 Order name: Basic Metabolic Panel cp 06/16 21:22 Order name: CBC with Diff; Complete Time: 22:10 cp 06/16 22:10 Interpretation: Normal except: RBC 3.91; HGB 12.4; HCT 36.4. cp 06/16 21:22 Order name: LFT's cp 06/16 21:22 Order name: Magnesium cp 06/16 21:22 Order name: NT PRO-BNP cp 06/16 21:22 Order name: PT-INR cp 06/16 19:34 Order name: XRAY Pelvis; Complete Time: 21:35 cp 06/16 21:35 Interpretation: Report reviewed. cp 06/16 21:22 Order name: Troponin (emerg Dept Use Only) cp 06/16 21:22 Order name: Ptt, Activated cp 06/16 22:28 Order name: Basic Metabolic Panel EDMS 06/16 22:29 Order name: Basic Metabolic Panel EDMS 06/16 22:29 Order name: CBC with Automated Diff EDMS 06/16 22:29 Order name: CBC with Automated Diff EDMS 06/16 23:03 Order name: SARS-COV-2 RT PCR EDMS 06/16 19:34 Order name: XRAY Femur LEFT; Complete Time: 21:35 cp 06/16 19:34 Order name: IV; Complete Time: 19:40 cp 06/16 21:16 Order name: Chest Single View XRAY; Complete Time: 21:35 mt 06/16 21:22 Order name: EKG; Complete Time: 21:22 cp 06/16 21:22 Order name: Cardiac monitoring; Complete Time: 21:42 cp 06/16 21:22 Order name: EKG - Nurse/Tech; Complete Time: 21:42 cp 06/16 21:22 Order name: Labs collected and sent; Complete Time: 21:42 cp 06/16 21:22 Order name: O2 Per Protocol; Complete Time: 21:42 cp 06/16 21:22 Order name: O2 Sat Monitoring; Complete Time: 21:42 cp 06/16 22:18 Order name: CONS Physician Consult EDTN 06/16 21:22 Order name: [place]; Complete Time: 21:42 cp EC:40 Rate is 77 beats/min. Rhythm is regular. QRS interval is prolonged at 114 msec. QT cp interval is normal. Interpreted by me. Reviewed by me. Administered Medications: 19:40 Drug: morphine 2 mg Route: IVP; Site: left forearm; mg2 20:43 Drug: morphine 2 mg {Note: RASS 0.} Route: IVP; Site: left forearm; wh 21:42 Follow up: Response: No adverse reaction; RASS: Alert and Calm (0) mg2 22:47 Follow up: Response: No adverse reaction; Pain is unchanged, physician notified; RASS: Alert and Calm (0) 20:54 Drug: morphine 4 mg {Note: RASS 0.} Route: IVP; Site: left forearm; wh 21:42 Follow up: Response: No adverse reaction; RASS: Alert and Calm (0) mg2 22:47 Follow up: Response: No adverse reaction; Pain is decreased; RASS: Alert and Calm (0) wh 21:47 Drug: Zofran (Ondansetron) 4 mg Route: IVP; Site: left forearm; wh 22:47 Follow up: Response: No adverse reaction; Nausea is decreased wh 22:33 Drug: Zofran (Ondansetron) 4 mg Route: IVP; Site: left forearm; 23:01 Follow up: Response: No adverse reaction mg2 22:35 Drug: Dilaudid 1 mg Route: IVP; Site: left forearm; 23:01 Follow up: Response: No adverse reaction mg2 23:47 Drug: Phenergan 25 mg Route: IVP; Site: left forearm; [facility] [place] 23:48 Follow up: Response: No adverse reaction mg2 Disposition: 06/17 05:04 Co-signature as Attending Physician, Nazario Arriola MD. [email or web address] Disposition: 06/16/20 21:30 Hospitalization ordered by Jeffrey Lang for Inpatient Admission. Preliminary diagnosis are Intertrochanteric fracture of femur - left, Fall on same level from slipping, tripping and stumbling. - Bed requested for Telemetry/MedSurg (Inpatient). - Status is Inpatient Admission. mg2 - Condition is Stable. - Problem is new. - Symptoms have improved. Signatures: Dispatcher [employer] EDMS Miriam Orta RN RN bb Page, Corey, PA PA Luis M Vicente RN RN [id number] Milan Hsu RN RN Delroy Staples RN RN [facility] [place] Nazario Arriola MD MD [email or web address] Corrections: (The following items were deleted from the chart) 06/16 23:17 21:30 Hospitalization Ordered by Jeffrey Lang MD for Inpatient Admission. Preliminary jb4 diagnosis is Intertrochanteric fracture of femur - left; Fall on same level from slipping, tripping and stumbling. Bed requested for Telemetry/MedSurg (Inpatient). Status is Inpatient Admission. Condition is Stable. Problem is new. Symptoms have improved. cp 23:19 23:17 06/16/2020 21:30 Hospitalization Ordered by Jeffrey Lang MD for Inpatient bb Admission. Preliminary diagnosis is Intertrochanteric fracture of femur - left; Fall on same level from slipping, tripping and stumbling. Bed requested for Telemetry/MedSurg (Inpatient). Status is Inpatient Admission. Condition is Stable. Problem is new. Symptoms have improved. jb4 23:48 23:19 06/16/2020 21:30 Hospitalization Ordered by Jeffrey Lang MD for Inpatient mg2 Admission. Preliminary diagnosis is Intertrochanteric fracture of femur - left; Fall on same level from slipping, tripping and stumbling. Bed requested for Telemetry/MedSurg (Inpatient). Status is Inpatient Admission. Condition is Stable. Problem is new. Symptoms have improved. bb
--- NOTE | 2020-06-16 21:30 | ER ---
Nurse's Notes [facility] Name: Ashok Barr Age: 89 yrs Sex: Male : 1930 Arrival Date: 06/16/2020 Time: 19:20 Bed X-Ray Private MD: Diagnosis: Intertrochanteric fracture of femur-left;Fall on same level from slipping, tripping and stumbling Presentation: 06/16 19:33 Chief complaint: EMS states: Pt was standing up when he fell and and landed on a sitting position. Pt now complaining of left hip pain. Coronavirus screen: Client denies travel out of the [place] in the last 14 days. At this time, the client does not indicate any symptoms associated with coronavirus-19. Ebola Screen: Patient negative for fever greater than or equal to 101.5 degrees Fahrenheit, and additional compatible Ebola Virus Disease symptoms Patient denies exposure to infectious person. Risk Assessment: Do you want to hurt yourself or someone else? Patient reports no desire to harm self or others. Onset of symptoms was June 16, 2020. Care prior to arrival: Medication(s) given: Fentanyl 75 mcg IV initiated. 20 GA, in the left forearm. 19:33 Method Of Arrival: EMS: [facility] 19:33 Acuity: SATISH 3 19:39 Initial Sepsis Screen: Does the patient meet any 2 criteria? No. Patient's initial sepsis screen is negative. Does the patient have a suspected source of infection? No. Patient's initial sepsis screen is negative. 19:40 Care prior to arrival: Medication(s) given: Fentanyl 75 mcg. Mechanism of Injury: Fall. Trauma event details: Injury occurred in the [facility]. Trauma Activation: Physician: ED Physician; Name: ; Notified At: 19:30; Arrived At: Physician: General Surgeon; Name: ; Notified At: 19:30; Arrived At: Physician: Radiology; Name: ; Notified At: 19:30; Arrived At: Physician: Respiratory; Name: ; Notified At: 19:30; Arrived At: Physician: Lab; Name: ; Notified At: 19:30; Arrived At: Historical: - Allergies: 19:35 No Known Allergies; wh - PMHx: 19:35 Hypertension; wh - Immunization history:: Adult Immunizations up to date. - Social history:: Smoking status: Patient/guardian denies using. - Immunization history: Last tetanus immunization: unknown. Screenin:35 Abuse screen: Denies threats or abuse. Denies injuries from another. Nutritional wh screening: No deficits noted. Tuberculosis screening: No symptoms or risk factors identified. Fall Risk Fall in past 12 months (25 points). Primary Survey: 19:39 NO uncontrolled hemorrhage observed. A: The patient is alert. Airway: patent. wh Breathing/Chest: Respiratory pattern: regular, Respiratory effort: spontaneous, unlabored. Circulation: Pulses: palpable left dorsalis pedis artery. Disability Alert. Exposure/Environment: All clothing and personal items were removed. Forensic evidence collection is not deemed to be indicated at this time. Items placed in patient belonging bag. There is no evidence of uncontrolled external bleeding. 20:53 Reassessment Airway Airway Patent Breathing/Chest Respiratory pattern Regular wh Respiratory effort Spontaneous Unlabored. Assessment: 19:41 General: Appears in no apparent distress. Behavior is calm, cooperative, appropriate for age. Pain: Complains of pain in left hip Pain currently is 9 out of 10 on a pain scale. Is intermittent. Neuro: Level of Consciousness is awake, alert, obeys commands, Oriented to person, place, time, situation, Appropriate for age. Cardiovascular: Capillary refill < 3 seconds. Respiratory: Airway is patent Respiratory effort is even, unlabored, Respiratory pattern is regular, symmetrical. GI: Abdomen is round non-distended. : No signs and/or symptoms were reported regarding the genitourinary system. EENT: No signs and/or symptoms were reported regarding the EENT system. Derm: Skin is intact. Musculoskeletal: Circulation, motion, and sensation intact. 20:38 Reassessment: Pt C/O of not being seen by an MD and nothing being done to him, wh explained to him, Pt was already seen by NELLIE Sagastume who put orders for imaging and pain medicine. Spoke with reproduction technician regarding time frame for ordered imaging, per Tech stated they only have one room and they still have a Pt, explained everything to Pt but still Pt is agitated, Spoke with Charge nurse explained talking to Pt. 20:53 Reassessment: Patient appears in no apparent distress at this time. No changes from previously documented assessment. Patient and/or family updated on plan of care and expected duration. Pain level reassessed. Patient is alert, oriented x 3, equal unlabored respirations, skin warm/dry/pink. 22:30 Reassessment: Spoke with informed of POC need for admit and surgery, PA speaking wh with Son regarding POC. Pt C/O of being in room for 4 hours and no room for him yet, explained were waiting on the Post.Bid.Ship test for room assignment. 22:44 Reassessment: Pt sleeping right now eyes closed. 23:21 Reassessment: Patient appears in no apparent distress at this time. Patient and/or family updated on plan of care and expected duration. Pain level reassessed. Patient is alert, oriented x 3, equal unlabored respirations, skin warm/dry/pink. Vital Signs: 19:37 BP 146 / 75; Pulse 67; Resp 18; Temp 97; Pulse Ox 99% ; Weight 83.91 kg; Height 5 ft. 10 in. (177.80 cm); Pain 9/10; 20:54 BP 153 / 80; Pulse 72; Resp 18; Pulse Ox 99% on R/A; 22:31 BP 139 / 91; Pulse 85; Resp 18; Pulse Ox 99% on R/A; 23:22 BP 122 / 65; Pulse 86; Resp 18; Pulse Ox 98% on R/A; 19:37 Body Mass Index 26.54 (83.91 kg, 177.80 cm) Jacobo Coma Score: 19:39 Eye Response: spontaneous(4). Verbal Response: oriented(5). Motor Response: obeys commands(6). Total: 15. Trauma Score (Adult): 19:39 Eye Response: spontaneous(1); Verbal Response: oriented(1); Motor Response: obeys commands(2); Systolic BP: > 89 mm Hg(4); Respiratory Rate: 10 to 29 per min(4); Jacobo Score: 15; Trauma Score: 12 19:39 Eye Response: spontaneous(1); Verbal Response: oriented(1); Motor Response: obeys commands(2); Systolic BP: > 89 mm Hg(4); Respiratory Rate: 10 to 29 per min(4); Jacobo Score: 15; Trauma Score: 12 ED Course: 19:20 Patient arrived in ED. cf2 19:25 Milan Hsu, RN is Primary Nurse. wh 19:31 Mitehs Hernandez PA is PHCP. cp 19:31 Nazario Arriola MD is Attending Physician. cp 19:34 Triage completed. wh 19:41 Patient maintains SpO2 saturation greater than 95% on room air. wh 19:42 Thermoregulation: warm blanket given to patient. wh 19:42 Maintain EMS IV. Dressing intact. Good blood return noted. Site clean \T\ dry. wh 19:42 Arm band placed on right wrist. wh 19:42 Patient has correct armband on for positive identification. Placed in gown. Bed in low wh position. Call light in reach. Side rails up X 1. Pulse ox on. NIBP on. 21:15 XRAY Pelvis In Process Unspecified. EDMS 21:15 XRAY Femur LEFT In Process Unspecified. EDMS 21:23 Chest Single View XRAY In Process Unspecified. EDMS 21:29 Jeffrey Lang MD is Hospitalizing Provider. cp 22:00 Schaefer cath inserted, using sterile technique, 18 Fr., by mo, balloon inflated, to oe gravity drainage, Patient tolerated well. 23:31 No provider procedures requiring assistance completed. Patient admitted, IV remains in wh place. Administered Medications: 19:40 Drug: morphine 2 mg Route: IVP; Site: left forearm; mg2 20:43 Drug: morphine 2 mg {Note: RASS 0.} Route: IVP; Site: left forearm; 21:42 Follow up: Response: No adverse reaction; RASS: Alert and Calm (0) [facility] 22:47 Follow up: Response: No adverse reaction; Pain is unchanged, physician notified; RASS: Alert and Calm (0) 20:54 Drug: morphine 4 mg {Note: RASS 0.} Route: IVP; Site: left forearm; 21:42 Follow up: Response: No adverse reaction; RASS: Alert and Calm (0) [facility] 22:47 Follow up: Response: No adverse reaction; Pain is decreased; RASS: Alert and Calm (0) 21:47 Drug: Zofran (Ondansetron) 4 mg Route: IVP; Site: left forearm; 22:47 Follow up: Response: No adverse reaction; Nausea is decreased wh 22:33 Drug: Zofran (Ondansetron) 4 mg Route: IVP; Site: left forearm; wh 23:01 Follow up: Response: No adverse reaction mg2 22:35 Drug: Dilaudid 1 mg Route: IVP; Site: left forearm; wh 23:01 Follow up: Response: No adverse reaction mg2 23:47 Drug: Phenergan 25 mg Route: IVP; Site: left forearm; mg2 23:48 Follow up: Response: No adverse reaction mg2 Intake: 23:32 IV: 250ml; Total: 250ml. Output: 23:32 Urine: 200ml (Schaefer); Total: 200ml. Outcome: 21:30 Decision to Hospitalize by Provider. cp 23:31 Admitted to Tele accompanied by tech, via stretcher, room 407, with chart, Report called to Ghislaine Ramos RN 23:31 Condition: stable 23:31 Instructed on the need for admit. 23:31 Patient's length of stay in the Emergency Department was greater than 2 hours. waiting for roomPatient's length of stay extended due to 23:48 Patient left the ED. mg2 Signatures: Dispatcher [employer] EDMS Mitesh Hernandez PA PA cp Royal Lobo Winsy, RN RN Delroy Staples RN RN [facility] Gustavo Calderon cf2
--- NOTE | 2020-06-16 21:32 | RAD REPORT ---
EXAM DESCRIPTION: RAD - Chest Single View - 06/16/2020 9:25 pm CLINICAL HISTORY: TRAUMA Chest pain. COMPARISON: Chest Single View dated 11/09/2019; Chest Pa And Lat (2 Views) dated 10/06/2019; CHEST SIN GLE VIEW dated 09/12/2010 FINDINGS: Portable technique limits examination quality. The lungs are grossly clear. The heart is normal in size. Tortuous thoracic aorta. IMPRESSION: No acute intrathoracic process suspected.
[2020-06-16] MEDS ORDERED: ONDANSETRON 4 MG/2 ML VIAL ONE ×2 (21:52→22:37)
[2020-06-16 21:58] LABS: Absolute Lymphocytes (CBC) 1.6 K/uL (0.7-4.9); Basophils % 0.7 % (0-1.3); Hematocrit 36.4 % (39.6-49.0); Lymphocytes % 15.7 % (15.3-44.8); MPV 10.6 fL (7.6-11.3); RBC Red Blood Cell Count 3.91 M/uL (4.33-5.43)
[2020-06-16 22:20] LABS: ALT/SGPT 21 U/L (12-78); AST/SGOT 19 U/L (15-37); Albumin 3.7 g/dL (3.4-5.0); Alkaline Phosphatase 78 U/L (45-117); BUN Blood Urea Nitrogen 30 mg/dL (7-18); Bicarbonate 26 mmol/L (21-32); Bilirubin Direct 0.1 mg/dL (0-0.2); Bilirubin Total 0.5 mg/dL (0.2-1.0); Glucose Level 126 mg/dL (74-106); Magnesium 2.3 mg/dL (1.8-2.4); NT PRO-BNP 201 pg/mL (<450); Potassium 3.6 mmol/L (3.5-5.1); Protein, Total 7.4 g/dL (6.4-8.2); Sodium Level 141 mmol/L (136-145); Troponin (Emerg Dept Use Only) < 0.02 ng/mL (0.0-0.045)
[2020-06-16 22:28] LABS: Protime INR 1.26
[2020-06-16] MEDS ORDERED: NA CHLORIDE 0.9% 250 ML ONE (22:37)
[2020-06-16] MEDS ORDERED: HYDROMORPHONE HCL 1 MG/ML INJ ONE (22:37)
[2020-06-16] MEDS ORDERED: PROMETHAZINE INJ 25 MG/ML AMP ONE (23:56)
[2020-06-16] MEDS ORDERED: NA CHLORIDE 0.9% 50 ML ONE (23:56)
[2020-06-17] MEDS: NA CHLORIDE 0.9% 1,000 ML IV SCH ×2 (00:47→18:24)
[2020-06-17 01:04] VITALS: BMI 25.8
[2020-06-17 03:57] LABS: Absolute Lymphocytes (CBC) 0.8 K/uL (0.7-4.9); Basophils % 0.2 % (0-1.3); Hematocrit 35.5 % (39.6-49.0); Lymphocytes % 5.5 % (15.3-44.8); MPV 10.6 fL (7.6-11.3); RBC Red Blood Cell Count 3.79 M/uL (4.33-5.43)
[2020-06-17] MEDS: MORPHINE 4 MG/ML SYR IV PRN ×4 (04:49→17:06)
[2020-06-17] MEDS: ONDANSETRON 4 MG/2 ML VIAL IV PRN ×2 (05:00→18:24)
[2020-06-17] MEDS: allopurinoL 100 MG TAB PO SCH (09:00)
[2020-06-17] MEDS: GABAPENTIN 100 MG CAP PO SCH ×2 (09:36→20:47)
[2020-06-17] MEDS: carvediloL 3.125 MG TAB PO SCH (09:37)
[2020-06-17] MEDS: MEMANTINE HCL 10 MG TABLET PO SCH ×2 (09:37→20:47)
[2020-06-17] MEDS: AMLODIPINE 5 MG TAB PO SCH (09:37)
[2020-06-17] MEDS: LOSARTAN POTASSIUM 50 MG TABLET PO SCH (09:59)
[2020-06-17] MEDS: hydroCHLOROthiazide 12.5 MG CAP PO SCH (09:59)
--- NOTE | 2020-06-17 11:23 | P.HP ---
Certification for Inpatient Patient admitted to: Inpatient With expected LOS: >2 Midnights Practitioner: I am a practitioner with admitting privileges, knowledge of patient current condition, hospital course, and medical plan of care. Services: Services provided to patient in accordance with Admission requirements found in Title 42 Section 412.3 of the Code of Federal Regulations Patient History Date of Service: 06/17/20 Reason for admission: FELL AND BROKE L HIP. History of Present Illness: MR. TORRES IS RELATIVELY HEALTHY GENTLEMAN WITH MILD DEMENTIA, COMES AFTER FALLING AT HOME AND BREAKING L HIP. HE NEEDS SURGERY AND IS KEPT ON COVID FLOOR HE IS COVID POSITIVE FROM COVID INFECTION TWO MONTHS AGO. THIS IS RNA TEST HE HAD HERE. HE HAD PCR TEST THAT WAS NEGATIVE A WEEK AGO PER HIM. Allergies No Known Allergies Allergy (Verified 10/06/19 17:34) Home medications list reviewed: Yes Home Medications: Allopurinol 1 tab PO DAILY 10/06/19 Amlodipine [Norvasc] 5 mg PO DAILY 06/17/20 Aspirin [Rodney Chewable] 81 mg PO UD 06/17/20 Gabapentin [Neurontin*] 100 mg PO BID 06/17/20 Lactobacillus Acidophilus [Probiotic Acidophilus] 1.5 mg PO UD 06/17/20 Losartan/Hydrochlorothiazide [Losartan-Hctz 100-12.5 mg Tab] 1 each PO DAILY 06/17/20 Memantine HCl 5 mg PO BID 06/17/20 carvediloL [Carvedilol] 3.125 mg PO DAILY 06/17/20 - Past Medical/Surgical History Has patient received pneumonia vaccine in the past: Yes Diabetic: No -: HTN -: prostate cancer -: prostate surgery - Family History Mother History Unknown: Yes Notes: Per pt no medical history Father History Unknown: Yes Notes: per pt father was a smoker - Social History Smoking Status: Unknown if ever smoked Alcohol use: Yes CD- Drugs: No Caffeine use: Yes Place of Residence: Home Review of Systems 10-point ROS is otherwise unremarkable General: Weakness Physical Examination - Vital Signs Temperature: 98.6 F Blood Pressure: 131/92 Pulse: 91 Respirations: 16 Pulse Ox (%): 98 - Physical Exam General: Alert, In no apparent distress (L HIP IN A TRACTION.) HEENT: Atraumatic, PERRLA, Mucous membr. moist/pink, EOMI, Sclerae nonicteric Neck: Supple, 2+ carotid pulse no bruit, No LAD, Without JVD or thyroid abnormality Respiratory: Clear to auscultation bilaterally, Normal air movement Cardiovascular: Regular rate/rhythm, Normal S1 S2 Gastrointestinal: Normal bowel sounds, No tenderness Integumentary: No rashes Neurological: Normal gait, Normal speech, Normal strength at 5/5 x4 extr, Normal tone, Normal affect Lymphatics: No axilla or inguinal lymphadenopathy - Studies Laboratory Data (last 24 hrs) 06/16/20 21:32: PT 14.5 H, INR 1.26, APTT 28.5 06/16/20 21:32: WBC 10.10, Hgb 12.4 L, Hct 36.4 L, Plt Count 187 06/16/20 21:32: Sodium 141, Potassium 3.6, BUN 30 H, Creatinine 1.39 H, Glucose 126 H, Magnesium 2.3, Total Bilirubin 0.5, AST 19, ALT 21, Alkaline Phosphatase 78 Assessment and Plan - Problems (Diagnosis) (1) Closed left hip fracture Current Visit: Yes Status: Acute Plan: MR. TORRES IS MEDICALLY CLEARED WITH MILD TO MODERATE RISK FROM AGING. I CALLED HIS TO DISCUSS PLAN. Qualifiers: Encounter type: initial encounter Qualified Code(s): S72.002A - Fracture of unspecified part of neck of left femur, initial encounter for closed fracture (2) Alzheimer disease Current Visit: Yes Status: Chronic Plan: STABLE ON MEMANTINE. 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 - Advance Directives Does patient have a Living Will: Yes Does patient have a Durable POA for Healthcare: No
[2020-06-17] MEDS: LACTOBACILLUS/ACIDOPHILUS TAB PO SCH (20:46)
--- NOTE | 2020-06-17 20:57 | CON ---
Date of Consultation: 06/17/2020 Reason For Consultation: Left hip pain. History Of Present Illness: Mr. Barr is an 89-year-old male who presented to the ER yesterday af ter sustaining a fall onto his left side with subsequent pain and inability to bear weight. The sameer ent had x-rays in the emergency room, which demonstrated a displaced left basicervical femur fracture . He denies any other musculoskeletal complaints at this time. He has history of COVID diagnosis in March 2020, which the patient of Dr. Lang states has resolved. However, in the emergency room, he did have a positive COVID test with history of negative test 1 week ago. Past Medical History: Includes prostate cancer, hypertension, as well as mild dementia. Past Surgical History: Includes prostate surgery. Home Medications: Allopurinol, Norvasc, Rodney aspirin, gabapentin, losartan, hydrochlorothiazide, me mantine, and carvedilol. Allergies: NO KNOWN DRUG ALLERGIES. Social History: No tobacco use. Occasional alcohol use. No drug use. Lives at home. Physical Examination: General: No apparent distress. HEENT: Normocephalic, atraumatic. Neck: Supple. Cardiovascular: Brisk cap refill to all digits. Chest: Nonlabored breathing. Abdomen: Nondistended. Psychiatric: Response to exam. Musculoskeletal: Bilateral upper extremities functional range of motion without pain. No gross defo rmities. No obvious dislocations. Right lower extremity functional range of motion without pain. N o gross deformities. No obvious dislocations. Left lower extremity pain with range of motion. Left hip tenderness to palpation of the left hip. No tenderness to palpation of the knee, tibia or ankle . Sensation grossly intact to the dorsal and plantar surface of his hip. Positive firing of EHL, FH L, gastrocsoleus complex, tibialis anterior. X-rays: X-rays of the left hip demonstrate a displaced left basicervical femur fracture. Assessment And Plan: Mr. Barr is an 89-year-old male with a left basicervical femur fracture. D iscussed with the patient and his at length risks and benefits associated with operative and non operative treatment. He expressed understanding. Given his displaced fracture pattern, I recommende d surgical fixation with cephalomedullary fixation. We will plan on surgery tomorrow. They expresse d understanding and elected to proceed with operative treatment. He will be n.p.o. after midnight an d physical therapy will be consulted postoperatively. CV/MODL Voice ID: [id number] Report ID: [id number]
[2020-06-18] MEDS: LOSARTAN POTASSIUM 50 MG TABLET PO SCH (09:00)
[2020-06-18] MEDS: MEMANTINE HCL 10 MG TABLET PO SCH ×2 (09:00→20:08)
[2020-06-18] MEDS: hydroCHLOROthiazide 12.5 MG CAP PO SCH (09:00)
[2020-06-18] MEDS: GABAPENTIN 100 MG CAP PO SCH ×2 (09:00→20:09)
[2020-06-18] MEDS: allopurinoL 100 MG TAB PO SCH (09:00)
[2020-06-18] MEDS: carvediloL 3.125 MG TAB PO SCH (09:24)
[2020-06-18] MEDS: AMLODIPINE 5 MG TAB PO SCH (09:24)
[2020-06-18] MEDS ORDERED: Ringers Lactate 1,000 ML IV ONE (11:21)
[2020-06-18] MEDS ORDERED: propofoL 200 MG/20 ML VIAL IV ONE (11:42)
[2020-06-18] MEDS ORDERED: LIDOCAINE 1% MPF 5 ML VIAL ONE (11:43)
[2020-06-18] MEDS ORDERED: FENTANYL CITR 100 MCG/2 ML ONE ×2 (11:43→13:06)
[2020-06-18] MEDS ORDERED: CEFAZOLIN/SWI 1gm 1 GM/10 ML SYR ONE (11:59)
[2020-06-18] MEDS ORDERED: TRANEXAMIC ACID 1,000 MG in NA CHLORIDE 0.9% 50 ML IV ONE (12:00)
[2020-06-18] MEDS ORDERED: KETOROLAC 30 MG/ML INJ ONE (12:41)
[2020-06-18] MEDS ORDERED: ONDANSETRON 4 MG/2 ML VIAL ONE (12:41)
[2020-06-18] MEDS ORDERED: EPHEDRINE SULF 50 MG/ML VIAL ONE (12:57)
[2020-06-18] MEDS ORDERED: NS 0.9% VIAL 10 ML ONE (13:05)
[2020-06-18] MEDS ORDERED: BUPIVACA 0.25%/EPI 0.0005% MDV 50 ML VIAL ONE (13:34)
--- NOTE | 2020-06-18 13:42 | P.BOP ---
Preoperative diagnosis: left intertrochanteric femur fracture Postoperative diagnosis: same Primary procedure: cephallomedullary fixation of left intertrochanteric femur fracture Blow Torch Operator: NONE,NONE Estimated blood loss: 150 cc Specimen: none Findings: see dictation Anesthesia: General Drain(s): Urinary catheter Implants: 11 mm x 180 mm 130 degree Biomet Affixus nail, 105 mm lag screw Fluids & blood products: per anesthesia record Transferred to: Recovery Room Condition: Good
[2020-06-18] MEDS ORDERED: DOCUSATE NA 100 MG CAP PO PRN (13:54)
[2020-06-18] MEDS ORDERED: TRAMADOL HCL 50 MG TAB PO PRN (13:54)
[2020-06-18] MEDS ORDERED: MORPHINE 4 MG/ML SYR ONE (14:36)
[2020-06-18] MEDS: NA CHLORIDE 0.9% 1,000 ML IV SCH (14:56)
--- NOTE | 2020-06-18 15:19 | RAD REPORT ---
EXAM DESCRIPTION: RAD - Hip In Or - 06/18/2020 3:11 pm CLINICAL HISTORY: lt hip nailing COMPARISON: Pelvis dated 06/16/2020 FINDINGS: Fluoroscopy time 0.8 minutes.
--- NOTE | 2020-06-18 15:21 | RAD REPORT ---
EXAM DESCRIPTION: RAD - Hip Left 2 View - 06/18/2020 3:13 pm CLINICAL HISTORY: postop Hip pain COMPARISON: No comparisons FINDINGS: Postsurgical changes of a proximal left femoral nail noted. No unexpected immediate postop erative finding. Skin enid are seen laterally. Prostatectomy clips identified.
[2020-06-18 16:14] LABS: Hematocrit 32.8 % (39.6-49.0)
[2020-06-18 16:19] LABS: Platelet Estimate ADEQ
[2020-06-18] MEDS: CEFAZOLIN/SWI 1gm 1 GM/10 ML SYR IV SCH ×2 (17:11→23:01)
--- NOTE | 2020-06-18 17:13 | EKG ---
Test Date: 2020-06-16 Test Time: 21:32:23 Fruit Loader: LUIS ALBERTO MEASUREMENT RESULTS: Intervals: Rate: 77 SD: QRSD: 114 QT: 404 QTc: 457 Mobile: P: SD: QRS: 77 T: 12 INTERPRETIVE STATEMENTS: Undetermined rhythm ST & T wave abnormality, consider inferior ischemia Abnormal ECG Compared to ECG 11/09/2019 12:15:56 ST (T wave) deviation now present Possible ischemia now present Electronically Signed On 06-18-20 17:06:44 MANAGER GALLERY by Dante Epperson
--- NOTE | 2020-06-18 21:02 | OP ---
Date of Procedure: 06/18/2020 Surgeon: Henrique Dillon MD Preoperative Diagnosis: Left intertrochanteric femur fracture. Postoperative Diagnosis: Left intertrochanteric femur fracture. Procedure Performed: Cephalomedullary fixation of left intertrochanteric femur fracture. Anesthesia: General, LMA. Fluids: Per Anesthesia record. Ebl: 150 cc. Complications: None. Implants: 11 x 180 mm 130-degree Biomet Affixus nail with a 95 mm lag screw. Indication For Procedure: Mr. Barr is an 89-year-old male who presented to the ER after sustaini ng a fall with subsequent pain to his left hip. He had x-rays demonstrating a left intertrochanteric femur fracture. I discussed with the patient and his family at length risks and benefits associated with operative and nonoperative treatment. He expressed understanding and elected to proceed with o perative treatment. Description Of Procedure: After informed consent was obtained, the patient was identified in the pre operative holding area. The left lower extremity was marked. The patient was brought back to the op erating room, transferred to the operating table in supine fashion, placed under general and LMA anes thesia. He was then placed on the fracture table with his extremities well padded. His left lower e xtremity was then manipulated on the fracture table, and using fluoroscopic guidance, a closed reduct ion was obtained. Next, the left lower extremity was then prepped and draped in usual sterile fashio n. A time-out was initiated. The correct patient and procedure were confirmed and identified. The patient did receive his preoperative prophylactic antibiotics. Approximately, a 5 cm longitudinal in cision was made just proximal to the greater trochanter along the lateral thigh. Dissection was then taken past the tensor fascia daisy and the guide pin was placed in the tip of the greater trochanter and confirmed using fluoroscopy. The guide pin was then passed down the femoral canal in an antegrad e fashion and confirmed the proper position with both AP and lateral views using fluoroscopy. Over t he guide pin, an entry reamer was then placed over the guide pin and the level just proximal to the l sari trochanter. Instruments were then removed and a ball-tipped guidewire was then placed down the femoral canal from the tip of the greater trochanter to the distal aspect of the femur and sequentia l reamings. The canal was reamed from a size 8 mm reamer to a size 12.5 mm reamer. A size 11 x 180 mm Biomet Affixus nail was then placed down the femoral canal. The guidewire wire was then removed, was in proper position and triple sleeve was then placed over the lateral thigh within the jig. A se cond incision was made over the lateral thigh. The triple sleeve was then placed down to the level o f the lateral cortex of the proximal femur. A guide pin was then placed in a center-center position within the femoral neck and head. It was then reamed after a second guidewire was placed to minimize rotation at the fracture site. It was then measured and 105 mm lag screw was selected and 105 mm la g screw was placed. The second guide pin was then removed and compression was then placed on the fra cture using the jig and the lag screw was then locked into position. Finally, a third incision was m elvia over the lateral side and another triple sleeve was then placed through the jig and distal interl ocking screw was placed in static position. The wounds were then irrigated thoroughly with normal sa line. Final x-rays were then checked in both AP and lateral views for proper positioning and reducti on of the fracture. This was confirmed. The deep tissue was approximated using 0 Vicryl. Subcutane ous tissue was approximated using a 2-0 Vicryl. Skin was approximated using enid. Sterile dressi ngs were applied. The patient was removed off the fracture table, awakened, and transferred back to his floor in stable condition. He was to be recovered in the operating room secondary to his positiv e COVID status. Postoperative Plan: He will be weightbearing as tolerated. He will be partial weightbearing on the left lower extremity. Physical Therapy will be consulted to aid with mobilization. CV/MODL Voice ID: [id number] Report ID: [id number]
--- NOTE | 2020-06-18 21:09 | P.PN ---
Subjective Date of Service: 06/18/20 Chief Complaint: FELL AND BROKE L HIP. Subjective: No new changes HIP SURGERY TODAY MEDICALLY STABLE. Physical Examination - Vital Signs Temperature: 97.1 F Blood Pressure: 122/58 Pulse: 92 Respirations: 18 Pulse Ox (%): 95 Assessment And Plan - Current Problems (Diagnosis) (1) Closed left hip fracture Current Visit: Yes Status: Acute Plan: MR. TORRES IS MEDICALLY CLEARED WITH MILD TO MODERATE RISK FROM AGING. I CALLED HIS TO DISCUSS PLAN. Qualifiers: Encounter type: initial encounter Qualified Code(s): S72.002A - Fracture of unspecified part of neck of left femur, initial encounter for closed fracture (2) Alzheimer disease Current Visit: Yes Status: Chronic Plan: STABLE ON MEMANTINE. 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
[2020-06-18] MEDS: MORPHINE 2 MG/ML SYR IV PRN (22:59)
[2020-06-19] MEDS: CEFAZOLIN/SWI 1gm 1 GM/10 ML SYR IV SCH (05:03)
[2020-06-19] MEDS: MORPHINE 2 MG/ML SYR IV PRN (05:03)
[2020-06-19] MEDS: allopurinoL 100 MG TAB PO SCH (09:00)
[2020-06-19] MEDS ORDERED: ENOXAPARIN 40 MG/0.4 ML SQ SCH (09:00)
[2020-06-19] MEDS: ENOXAPARIN 40 MG/0.4 ML SQ SCH (09:06)
[2020-06-19] MEDS: MEMANTINE HCL 10 MG TABLET PO SCH ×2 (09:06→20:08)
[2020-06-19] MEDS: hydroCHLOROthiazide 12.5 MG CAP PO SCH (09:06)
[2020-06-19] MEDS: carvediloL 3.125 MG TAB PO SCH (09:07)
[2020-06-19] MEDS: LOSARTAN POTASSIUM 50 MG TABLET PO SCH (09:08)
[2020-06-19] MEDS: GABAPENTIN 100 MG CAP PO SCH ×2 (09:08→20:08)
[2020-06-19] MEDS: AMLODIPINE 5 MG TAB PO SCH (09:08)
--- NOTE | 2020-06-19 12:30 | EKG ---
Test Date: 2020-06-18 Test Time: 10:12:23 Oil Prospecting Observer: VALERIE MEASUREMENT RESULTS: Intervals: Rate: 80 WV: 150 QRSD: 96 QT: 370 QTc: 426 [place]: P: -2 WV: 150 QRS: 132 T: -23 INTERPRETIVE STATEMENTS: Normal sinus rhythm Left posterior fascicular block Septal infarct, age undetermined Cannot rule out Inferior infarct, age undetermined Abnormal ECG Compared to ECG 06/16/2020 21:32:23 Left posterior fascicular block now present Myocardial infarct finding now present ST (T wave) deviation no longer present Possible ischemia no longer present Electronically Signed On 06-19-20 12:27:52 RECYCLING OR RUBBISH COLLECTOR by Dante Epperson
[2020-06-19] MEDS: NA CHLORIDE 0.9% 1,000 ML IV SCH (15:10)
[2020-06-19] MEDS: LACTOBACILLUS/ACIDOPHILUS TAB PO SCH (20:08)
--- NOTE | 2020-06-19 20:53 | P.PN ---
Subjective Date of Service: 06/19/20 Chief Complaint: FELL AND BROKE L HIP. Subjective: Improving HIP SURGERY TODAY MEDICALLY STABLE. MR. TORRES IS STABLE. HE HAS NO COVID SYMPTOMS FOR LAST 2 MONTHS. HE WAS POSITIVE TWO MONTHS AGO AND STILL HAS POSITIVE PCR TEST. Review of Systems 10-point ROS is otherwise unremarkable Physical Examination - Vital Signs Temperature: 99.6 F Blood Pressure: 120/58 Pulse: 88 Respirations: 20 Pulse Ox (%): 93 - Physical Exam General: Mild distress, Obese HEENT: Atraumatic, PERRLA, EOMI Neck: Supple, JVD not distended Respiratory: Clear to auscultation bilaterally, Normal air movement Cardiovascular: Regular rate/rhythm, Normal S1 S2 Gastrointestinal: Normal bowel sounds, No tenderness Musculoskeletal: No tenderness Integumentary: No rashes Neurological: Normal speech, Normal tone, Normal affect Lymphatics: No axilla or inguinal lymphadenopathy - Studies Medications List Reviewed: Yes Assessment And Plan - Current Problems (Diagnosis) (1) Closed left hip fracture Current Visit: Yes Status: Acute Plan: MR. TORRES IS MEDICALLY CLEARED WITH MILD TO MODERATE RISK FROM AGING. I CALLED HIS TO DISCUSS PLAN. CALLED. I TALKED TO DEBRA BOUCHER ABOUT DC PLANNING. HE DOES NOT HAVE ACUTE COVID. HE HAD COVID INFECTION TWO MONTHS AGO. HE IS MEDICALLY CLEEARED FOR ANY REHAB FACILITY. Qualifiers: Encounter type: initial encounter Qualified Code(s): S72.002A - Fracture of unspecified part of neck of left femur, initial encounter for closed fracture (2) Alzheimer disease Current Visit: Yes Status: Chronic Plan: STABLE ON [place]. PLEASANTLY CONFUSED. 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
[2020-06-20 03:59] LABS: Absolute Lymphocytes (CBC) 1.1 K/uL (0.7-4.9); Basophils % 0.3 % (0-1.3); Hematocrit 29.5 % (39.6-49.0); Lymphocytes % 9.6 % (15.3-44.8); MPV 10.1 fL (7.6-11.3); RBC Red Blood Cell Count 3.19 M/uL (4.33-5.43)
[2020-06-20 07:30] LABS: Potassium 3.5 mmol/L (3.5-5.1)
[2020-06-20] MEDS: AMLODIPINE 5 MG TAB PO SCH (09:00)
[2020-06-20] MEDS: hydroCHLOROthiazide 12.5 MG CAP PO SCH (09:00)
[2020-06-20] MEDS: NA CHLORIDE 0.9% 1,000 ML IV SCH ×2 (09:00→21:53)
[2020-06-20] MEDS: allopurinoL 100 MG TAB PO SCH (09:00)
[2020-06-20] MEDS: ENOXAPARIN 40 MG/0.4 ML SQ SCH (09:05)
[2020-06-20] MEDS: MEMANTINE HCL 10 MG TABLET PO SCH ×2 (09:06→21:07)
[2020-06-20] MEDS: carvediloL 3.125 MG TAB PO SCH (09:06)
[2020-06-20] MEDS: GABAPENTIN 100 MG CAP PO SCH ×2 (09:07→21:06)
[2020-06-20] MEDS: LOSARTAN POTASSIUM 50 MG TABLET PO SCH (09:07)
--- NOTE | 2020-06-20 19:42 | P.PN ---
Subjective Date of Service: 06/20/20 Chief Complaint: s/p IMN left hip Subjective: Working w/ PT pain controlled Physical Examination - Vital Signs Temperature: 98.6 F Blood Pressure: 99/86 Pulse: 81 Respirations: 16 Pulse Ox (%): 95 - Physical Exam General: Alert, In no apparent distress Musculoskeletal: Other (LLE: dressing c/d/i; minimal swelling to left thing; +EHL/FHL/GSC/TA; sensation grossly intact distally) - Studies Medications List Reviewed: Yes Assessment And Plan - Plan Ashok is an 89 yo male s/p IMN of his left hip fracture POD#2 -PT to mobilize; PWB LLE -lovenox for DVT prophylaxis -pending acceptance to [facility]
--- NOTE | 2020-06-20 20:53 | P.PN ---
Subjective Date of Service: 06/20/20 Chief Complaint: s/p IMN left hip Subjective: Improving HIP SURGERY TODAY MEDICALLY STABLE. MR. TORRES IS STABLE. HE HAS NO COVID SYMPTOMS FOR LAST 2 MONTHS. HE WAS POSITIVE TWO MONTHS AGO AND STILL HAS POSITIVE PCR TEST. MR TORRES IS STABLE. WE TRIED TO CALL AGAIN TODAY AND WE HAD TO LEAVE A MESSAGE WE ARE WAITING FOR APPROVAL FOR [facility]-WAY THAT TAKES COVID POSITIVE PATIENTS. HE HAD COVID 2 MONTHS AAGO AND THE TEST IS STILL POSITIVE. Review of Systems 10-point ROS is otherwise unremarkable General: Weakness Physical Examination - Vital Signs Temperature: 98.6 F Blood Pressure: 99/86 Pulse: 81 Respirations: 16 Pulse Ox (%): 95 - Physical Exam General: Mild distress HEENT: Atraumatic, PERRLA, EOMI Neck: Supple, JVD not distended Respiratory: Clear to auscultation bilaterally, Normal air movement Cardiovascular: Regular rate/rhythm, Normal S1 S2 Gastrointestinal: Normal bowel sounds, No tenderness Musculoskeletal: No tenderness Integumentary: No rashes Neurological: Normal speech, Normal tone, Normal affect Lymphatics: No axilla or inguinal lymphadenopathy - Studies Medications List Reviewed: Yes Assessment And Plan - Current Problems (Diagnosis) (1) Closed left hip fracture Current Visit: Yes Status: Acute Plan: MR. TORRES IS MEDICALLY CLEARED WITH MILD TO MODERATE RISK FROM AGING. I CALLED HIS TO DISCUSS PLAN. CALLED. I TALKED TO DEBRA BOUCHER ABOUT DC PLANNING. HE DOES NOT HAVE ACUTE COVID. HE HAD COVID INFECTION TWO MONTHS AGO. HE IS MEDICALLY CLEEARED FOR ANY REHAB FACILITY. PLACEMENT IS AN ISSUE NOW BEING TAKEN CARE BY DISCHARGE PLANNERS. Qualifiers: Encounter type: initial encounter Qualified Code(s): S72.002A - Fracture of unspecified part of neck of left femur, initial encounter for closed fracture (2) Alzheimer disease Current Visit: Yes Status: Chronic Plan: STABLE ON MEM[place]INE. PLEASANTLY CONFUSED. 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
[2020-06-21] MEDS: NA CHLORIDE 0.9% 1,000 ML IV SCH (05:00)
[2020-06-21] MEDS: allopurinoL 100 MG TAB PO SCH (09:00)
[2020-06-21] MEDS: ENOXAPARIN 40 MG/0.4 ML SQ SCH (09:56)
[2020-06-21] MEDS: GABAPENTIN 100 MG CAP PO SCH ×2 (09:57→20:00)
[2020-06-21] MEDS: MEMANTINE HCL 10 MG TABLET PO SCH ×2 (09:57→20:00)
[2020-06-21] MEDS: carvediloL 3.125 MG TAB PO SCH (09:57)
[2020-06-21 13:41] LABS: MPV 10.9 fL (7.6-11.3)
[2020-06-21] MEDS: LACTOBACILLUS/ACIDOPHILUS TAB PO SCH (20:00)
--- NOTE | 2020-06-21 20:51 | P.PN ---
Subjective Date of Service: 06/21/20 Chief Complaint: s/p IMN left hip Subjective: Improving HIP SURGERY TODAY MEDICALLY STABLE. MR. TORRES IS STABLE. HE HAS NO COVID SYMPTOMS FOR LAST 2 MONTHS. HE WAS POSITIVE TWO MONTHS AGO AND STILL HAS POSITIVE PCR TEST. MR TORRES IS STABLE. WE TRIED TO CALL AGAIN TODAY AND WE HAD TO LEAVE A MESSAGE WE ARE WAITING FOR APPROVAL FOR [facility] THAT TAKES COVID POSITIVE PATIENTS. HE HAD COVID 2 MONTHS AAGO AND THE TEST IS STILL POSITIVE. HE IS STABLE. NEEDS PT AND NOT ABLE TO GO HERE HE IS POSITIVE FOR COVID. I ADIVSE [facility] WE CAN'T WAIT FOR COVID TEST TO BE NEGATIVE THAT HAS BEEN POSITIVE FOR LAST 2 MONTHS. HAS BEEN CALLED ON DAILY BASIS BY MANY PEOPLE INCLUDING ME. Physical Examination - Vital Signs Temperature: 97.4 F Blood Pressure: 119/58 Pulse: 81 Respirations: 16 Pulse Ox (%): 97 - Physical Exam General: Alert, In no apparent distress HEENT: Atraumatic, PERRLA, EOMI Neck: Supple, JVD not distended Respiratory: Clear to auscultation bilaterally, Normal air movement Cardiovascular: Regular rate/rhythm, Normal S1 S2 Gastrointestinal: Normal bowel sounds, No tenderness Musculoskeletal: No tenderness Integumentary: No rashes Neurological: Normal speech, Normal tone, Normal affect Lymphatics: No axilla or inguinal lymphadenopathy - Studies Medications List Reviewed: Yes Assessment And Plan - Current Problems (Diagnosis) (1) Closed left hip fracture Current Visit: Yes Status: Acute Plan: MR. TORRES IS MEDICALLY CLEARED WITH MILD TO MODERATE RISK FROM AGING. I CALLED HIS TO DISCUSS PLAN. CALLED. I TALKED TO DEBRA BOUCHER ABOUT DC PLANNING. HE DOES NOT HAVE ACUTE COVID. HE HAD COVID INFECTION TWO MONTHS AGO. HE IS MEDICALLY CLEEARED FOR ANY REHAB FACILITY. PLACEMENT IS AN ISSUE NOW BEING TAKEN CARE BY DISCHARGE PLANNERS. PT CONSULT FOR ANY PLACE THAT WILL ACCEPT HIM WITH POSITIVE COVID. Qualifiers: Encounter type: initial encounter Qualified Code(s): S72.002A - Fracture of unspecified part of neck of left femur, initial encounter for closed fracture (2) Alzheimer disease Current Visit: Yes Status: Chronic Plan: STABLE ON MEM[place]INE. PLEASANTLY CONFUSED. 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
[2020-06-22] MEDS: NA CHLORIDE 0.9% 1,000 ML IV SCH (01:00)
[2020-06-22 08:26] VITALS: O2SAT 94
[2020-06-22] MEDS: carvediloL 3.125 MG TAB PO SCH (08:54)
[2020-06-22] MEDS: ENOXAPARIN 40 MG/0.4 ML SQ SCH (08:54)
[2020-06-22] MEDS: GABAPENTIN 100 MG CAP PO SCH (08:54)
[2020-06-22] MEDS: allopurinoL 100 MG TAB PO SCH (08:55)
[2020-06-22] MEDS: MEMANTINE HCL 10 MG TABLET PO SCH (08:55)
--- NOTE | 2020-06-22 14:04 | P.DS ---
Admission Date: 06/16/20 Discharge Date: 06/22/20 Disposition: TRANSFER TO SNF - REHAB Discharge Condition: FAIR Reason for Admission: s/p IMN left hip - Problems (1) Closed left hip fracture Current Visit: Yes Status: Acute Qualifiers: Encounter type: initial encounter Qualified Code(s): S72.002A - Fracture of unspecified part of neck of left femur, initial encounter for closed fracture (2) Alzheimer disease Current Visit: Yes Status: Chronic (3) HTN (hypertension) Current Visit: Yes Status: Chronic Qualifiers: Hypertension type: essential hypertension Qualified Code(s): I10 - Essential (primary) hypertension (4) Lumbar radicular pain Current Visit: Yes Status: Chronic Brief History of Present Illness: MR. TORRES IS RELATIVELY HEALTHY GENTLEMAN WITH MILD DEMENTIA, COMES AFTER FALLING AT HOME AND BREAKING L HIP. HE NEEDS SURGERY AND IS KEPT ON COVID FLOOR HE IS COVID POSITIVE FROM COVID INFECTION TWO MONTHS AGO. THIS IS RNA TEST HE HAD HERE. HE HAD PCR TEST THAT WAS NEGATIVE A WEEK AGO PER HIM. Hospital Course: MR. TORRES HAD BROKEN HIP THAT WAS REPAIRED BY ORTHO . HE HAD COVID INFECTION ABOUT 2 MONTHS AGO. HE HAS BEEN POSITIVE FOR THE TEST SINCE THEN. HE WILL GO TO [facility] TODAY IN THEIR COVID UNIT. HE IS STABLE FOR TRANSFER. Vital Signs/Physical Exam: Temp Pulse Resp BP Pulse Ox 98.0 F 90 20 131/56 L 97 06/22/20 12:00 06/22/20 12:00 06/22/20 12:00 06/22/20 12:00 06/22/20 12:00 Laboratory Data at Discharge: WBC 11.90 K/uL (4.3-10.9) H D 06/20/20 03:30 Hgb 10.3 g/dL (13.6-17.9) L 06/20/20 03:30 Hct 29.5 % (39.6-49.0) L 06/20/20 03:30 Plt Count 209 K/uL (152-406) D 06/21/20 12:49 PT 14.5 SECONDS (9.5-12.5) H 06/16/20 21:32 INR 1.26 06/16/20 21:32 APTT 28.5 SECONDS (24.3-36.9) 06/16/20 21:32 Sodium 137 mmol/L (136-145) 06/20/20 06:52 Potassium 3.5 mmol/L (3.5-5.1) 06/20/20 06:52 BUN 23 mg/dL (7-18) H 06/20/20 06:52 Creatinine 1.01 mg/dL (0.55-1.3) 06/20/20 06:52 Glucose 100 mg/dL (74-106) 06/20/20 06:52 Magnesium 2.3 mg/dL (1.8-2.4) 06/16/20 21:32 Total Bilirubin 0.5 mg/dL (0.2-1.0) 06/16/20 21:32 AST 19 U/L (15-37) 06/16/20 21:32 ALT 21 U/L (12-78) 06/16/20 21:32 Alkaline Phosphatase 78 U/L (45-117) 06/16/20 21:32 Home Medications: Allopurinol 1 tab PO DAILY 10/06/19 Amlodipine [Norvasc*] 5 mg PO DAILY 06/17/20 Aspirin [Rodney Chewable Aspirin] 81 mg PO UD 06/17/20 Gabapentin [Neurontin*] 100 mg PO BID 06/17/20 Lactobacillus Acidophilus [Probiotic Acidophilus] 1.5 mg PO UD 06/17/20 Losartan/Hydrochlorothiazide [Losartan-Hctz 100-12.5 mg Tab] 1 each PO DAILY 06/17/20 Memantine HCl 5 mg PO BID 06/17/20 carvediloL [Carvedilol] 3.125 mg PO DAILY 06/17/20 Docusate [Colace Cap*] 200 mg PO DAILY PRN cap 06/22/20 Enoxaparin Sodium [Lovenox 40 MG INJ*] 40 mg SQ DAILY syr 06/22/20 traMADol HCL [Ultram*] 50 mg PO Q6H PRN tab 06/22/20 Followup: Jeffrey Lang MD [ACTIVE - CAN ADMIT] - (call to schedule appointment)
[2020-06-22 17:48] VITALS: BP 151/70; TEMP 98.5
== END 2020-06-22 16:13 | DRG 480 ==
LOC: ER 19:19 → ERHOLD 22:16 → 4TH 23:41
PROVIDERS: ADMIT Internal Medicine; ATTEND Internal Medicine
PROC: 0QS734Z Reposition Left Upper Femur with Internal Fixation Device, Percutaneous Approach (ICD-10-PCS; principal; 2020-06-18 11:30)
DX: S72.142A Displaced intertrochanteric fracture of left femur, initial encounter for closed fracture (principal); U07.1 COVID-19; I10 Essential (primary) hypertension; G30.9 Alzheimer's disease, unspecified; F02.80 Dementia in other diseases classified elsewhere, unspecified severity, without behavioral disturbance, psychotic disturbance, mood disturbance, and anxiety; M54.16 Radiculopathy, lumbar region; E66.9 Obesity, unspecified; W01.0XXA Fall on same level from slipping, tripping and stumbling without subsequent striking against object, initial encounter; Z68.25 Body mass index [BMI] 25.0-25.9, adult; Z86.16 Personal history of COVID-19; Z85.46 Personal history of malignant neoplasm of prostate; Z79.899 Other long term (current) drug therapy; Z79.82 Long term (current) use of aspirin
CPT/HCPCS: 36415; 51702; 71045; 72170; 73530; 80048; 80076; 83735; 83880; 84484; 85014; 85018; 85025; 85049; 85610; 85730; 93005; 94010; 96374; 96375; 97110; 97161; 97530; 99285; J0690; J1170; J1650; J2270; J2405; J2550; J2704; J3010; J7030; J7050; J7120; U0002; U0003